=== PATIENT | male | born 1970 | race Two or more races ===

== ENCOUNTER 2018-05-11 10:47 | Inpatient (IN) | payer MEDICAID ==
[~2018-05-11] VITALS: Ht 167.6 cm; Wt 80.7 kg
--- NOTE | 2018-05-11 11:05 | NUR ---
WORSENING PITTING EDEMA TO BILATERAL LOWER EXTREMITIES. SKIN IS INTACT, TAUT/SHINY IN BLE. 1+ PITTING EDEMA, BLANCHING. STATES PAIN ONLY WHEN WALKING. PT IS AOX4, AMBULATORY WITH ASSISTANCE, VSS, RR EVEN AND UNLABORED. NO ACUTE DISTURESS NOTED. DENIES SOB, DIZZINESS, WEAKNESS, N/V. READY FOR EVAL.
[2018-05-11 11:26] LABS: BASOPHILS # (AUTO) 0.1 /CMM (0.0-0.2); BASOPHILS % (AUTO) 1.4 % (0.0-2.0); EOSINOPHILS % (AUTO) 3.2 % (0.0-6.0); HEMATOCRIT 42 % (39-51); LYMPHOCYTES # (AUTO) 1.6 /CMM (0.8-4.8); LYMPHOCYTES % (AUTO) 21.9 % (20.0-44.0); MEAN CORPUSCULAR HGB CONC 34 g/dl (31.0-36.0); MEAN CORPUSCULAR VOLUME 88 fL (80-96); MONOCYTES # (AUTO) 0.6 /CMM (0.1-1.30); MONOCYTES % (AUTO) 8.1 % (2.0-12.0); NEUTROPHILS # (AUTO) 4.8 /CMM (1.8-8.9); NEUTROPHILS % (AUTO) 65.4 % (43.0-81.0); PLATELET COUNT (AUTO) 268 /CMM (150-450); RED BLOOD CELL COUNT(AUTO) 4.75 MIL/uL (4.5-6.0); WHITE BLOOD COUNT (AUTO) 7.3 K/uL (4.3-11.0)
--- NOTE | 2018-05-11 11:32 | NUR ---
US TECH AT BEDSIDE
[2018-05-11 11:37] LABS: CALCIUM, SERUM 8.7 mg/dL (8.5-10.1); CREATININE 1.1 mg/dL (0.6-1.3); POTASSIUM 4.2 mmol/L (3.5-5.1)
[2018-05-11 11:49] LABS: ALBUMIN 3.2 g/dL (3.4-5.0); BILIRUBIN,TOTAL 0.5 mg/dL (0.2-1.0)
--- NOTE | 2018-05-11 12:00 | NUR ---
PER TECH, US NEGATIVE. WILL NOTIFY PA
[2018-05-11] MEDS ORDERED: FUROSEMIDE 40 MG/4 ML VIAL ONE (12:16)
[2018-05-11] MEDS ORDERED: VANCOMYCIN 1 GM VIAL ONE (12:16)
[2018-05-11] MEDS ORDERED: VANCOMYCIN 1 GM in IV D5W 250 ML IV ONE (12:30)
[2018-05-11] MEDS ORDERED: FUROSEMIDE 40 MG/4 ML VIAL IV ONE (12:30)
--- NOTE | 2018-05-11 13:20 | NUR ---
CALLED [employer] PRODUCT MANAGEMENT MANAGER WAS PAGED.
--- NOTE | 2018-05-11 13:30 | NUR ---
Patient is resting comfortably in bed. Easily aroused. VSS. NO COMPLAINTS AT THIS TIME
--- NOTE | 2018-05-11 13:44 | NUR ---
ABX COMPLETED. PT SHAHID WELL
--- NOTE | 2018-05-11 14:36 | NUR ---
REPORT GIVEN TO ENEIDA SETHI FOR 328-1 MS
--- NOTE | 2018-05-11 14:50 | NUR ---
PT TRANSFERRED TO 3RD FLOOR VIA WC WITH YEIMI, EMT
--- NOTE | 2018-05-11 14:55 | NUR ---
SHELLACKER PATIENT A/OX3, LIVES ON THE STREET, BREATHING EVEN AND UNLABORED, NO SOB NOTED, SKIN ASSESSMENT COMPLETED, PATIENT NOTED WITH BLE REDNESS AND SWELLING, WITH SCABS ON ZOHAIB. FEET. NEEDS ATTENDED AND MET, CALL LIGHT WITHIN REACH, WILL CONTINUE TO MONITOR.
[2018-05-11 15:30] VITALS: BP 114/82
[2018-05-11] MEDS ORDERED: IV NS 0.9% 1,000 ML IV PRN (17:05)
[2018-05-11] MEDS ORDERED: Z GUARD REMEDY 2 OZ OINT TP PRN (17:30)
[2018-05-11] MEDS ORDERED: VANCOMYCIN 1 GM in IV NS 0.9% 250 ML IV SCH (17:30)
[2018-05-11] MEDS ORDERED: HYDROCODONE/APAP 5/325MG 1 EACH TABLET PO PRN (17:30)
[2018-05-11] MEDS ORDERED: MAGNESIUM HYDROXIDE 30 ML UDC PO PRN (17:30)
[2018-05-11] MEDS ORDERED: ONDANSETRON HCL/PF 4 MG/2 ML VIAL IVP PRN (17:30)
[2018-05-11] MEDS ORDERED: ZOLPIDEM TARTRATE 5 MG TABLET PO PRN (17:30)
[2018-05-11] MEDS ORDERED: ACETAMINOPHEN 325 MG TABLET PO PRN (17:30)
[2018-05-11] MEDS ORDERED: MAG HYDROX/AL HYDROX/SIMETH 30 ML UDC PO PRN (17:30)
[2018-05-11] MEDS ORDERED: FEE PK DOSING 1 MIN EA MC ONE (17:37)
--- NOTE | 2018-05-11 18:54 | NUR ---
RN NOTES PATIENT IN BED, ASLEEP, BUT RESPONSIVE TO VERBAL STIMULI, NAD, NO SOB NOTED, DENIES PAIN, NEEDS ATTENDED AND MET, CALL LIGHT WITHIN REACH, WILL ENDORSE TO GROUND CREW CHIEF FOR JULIA.
--- NOTE | 2018-05-11 19:45 | NUR ---
RN NOTES RECEIVED PATIENT IN BED, ASLEEP, BUT RESPONSIVE TO VERBAL STIMULI, NO SIGNS OG ACUTE DISTRESS NOTED, NO SOB NOTED, BREATHING EVEN AND NON LABORED,. ALL SAFETY MEASURES MAINTAINED, BED IN LOW LOCK POSITION, CALL LIGHT WITHIN EASY REACH. WILL CONTINUE TO MONITOR.
[2018-05-11 20:12] VITALS: BP 107/69
[2018-05-11] MEDS: ENOXAPARIN SODIUM 40 MG/0.4 ML DISP.SYRIN SQ SCH (21:16)
[2018-05-11] MEDS: VANCOMYCIN 0.75 GM in IV D5W 250 ML IV SCH (21:17)
[2018-05-12] MEDS: VANCOMYCIN 0.75 GM in IV D5W 250 ML IV SCH ×3 (05:08→21:11)
[2018-05-12 06:15] LABS: BASOPHILS # (AUTO) 0.1 /CMM (0.0-0.2); BASOPHILS % (AUTO) 0.8 % (0.0-2.0); EOSINOPHILS % (AUTO) 2.5 % (0.0-6.0); HEMATOCRIT 42 % (39-51); LYMPHOCYTES # (AUTO) 0.8 /CMM (0.8-4.8); LYMPHOCYTES % (AUTO) 9.9 % (20.0-44.0); MEAN CORPUSCULAR HGB CONC 34 g/dl (31.0-36.0); MEAN CORPUSCULAR VOLUME 87 fL (80-96); MONOCYTES # (AUTO) 0.5 /CMM (0.1-1.30); MONOCYTES % (AUTO) 5.9 % (2.0-12.0); NEUTROPHILS # (AUTO) 6.9 /CMM (1.8-8.9); NEUTROPHILS % (AUTO) 80.9 % (43.0-81.0); PLATELET COUNT (AUTO) 243 /CMM (150-450); RED BLOOD CELL COUNT(AUTO) 4.77 MIL/uL (4.5-6.0); WHITE BLOOD COUNT (AUTO) 8.6 K/uL (4.3-11.0)
[2018-05-12 06:32] LABS: CALCIUM, SERUM 8.4 mg/dL (8.5-10.1); CREATININE 1.1 mg/dL (0.6-1.3); MAGNESIUM 1.9 mg/dL (1.8-2.4); PHOSPHORUS 3.7 mg/dL (2.5-4.9); POTASSIUM 4.1 mmol/L (3.5-5.1)
--- NOTE | 2018-05-12 06:37 | NUR ---
RN NOTES PATIENT IN BED, ASLEEP, BUT RESPONSIVE TO VERBAL STIMULI, NO SIGNS OF ACUTE DISTRESS NOTED, NO SOB NOTED, BREATHING EVEN AND NON LABORED,.IV ON THE RIGHT FA INTACT AND PATENT WITH NS AT 75ML/HR. ALL SAFETY MEASURES MAINTAINED, BED IN LOW LOCK POSITION, CALL LIGHT WITHIN EASY REACH. WILL ENDORSE TO AM NURSE FOR JULIA.
[2018-05-12 08:00] VITALS: BP 129/76
--- NOTE | 2018-05-12 08:00 | NUR ---
MS RN AM NOTES PATIENT IN BED, BUT RESPONSIVE TO VERBAL STIMULI, NO SIGNS OF ACUTE DISTRESS NOTED, NO SOB NOTED, BREATHING EVEN AND NON LABORED,.IV ON THE RIGHT FA INTACT AND PATENT WITH NS AT 75ML/HR INFUSING WELL. SAFETY MEASURES MAINTAINED, BED IN LOW LOCK POSITION, CALL LIGHT WITHIN EASY REACH.
[2018-05-12 16:00] VITALS: BP 131/65
--- NOTE | 2018-05-12 18:53 | NUR ---
PT RESTING IN BED DENYING ANY PAIN OR DISTRESS.INTERACTING FINE WITH ROOMATE.WITH ONGOING IVF OF NS AT 75 ML/HR INFUSING WELL.CALL LIGHT PLACED WITHIN REAX
--- NOTE | 2018-05-12 19:33 | NUR ---
MS RN NOTE RECEIVED PT IN STABLE CONDITION A&O X4. CURRENTLY WATCHING TV. NO SIGNS OF SOB OR DISTRESS. SAFETY MEASURES IN PLACE: BED LOW AND LOCKED POSITION, UPPER BED RAILS UP X2, AND CALL LIGHT WITHIN REACH. WILL CONT. TO MONITOR.
[2018-05-12 20:00] VITALS: BP 114/83
[2018-05-12] MEDS: ENOXAPARIN SODIUM 40 MG/0.4 ML DISP.SYRIN SQ SCH (20:36)
[2018-05-13] MEDS: VANCOMYCIN 0.75 GM in IV D5W 250 ML IV SCH ×2 (05:01→13:49)
--- NOTE | 2018-05-13 06:20 | NUR ---
MS RN NOTE PT IN STABLE CONDITION A&O X4. SLEEPING INTERMITTENTLY, AND EASILY AROUSABLE. NO SIGNS OF SOB OR DISTRESS. R FA IV PATENT AND INTACT INFUSING AM DOSE OF VANCOMYCIN. TOLERATING WELL. SAFETY MEASURES IN PLACE: BED LOW AND LOCKED POSITION, UPPER BED RAILS UP X2, AND CALL LIGHT WITHIN REACH. WILL CONT. TO MONITOR AND ENDORSE TO NEXT SHIFT.
[2018-05-13 06:25] LABS: CALCIUM, SERUM 8.8 mg/dL (8.5-10.1); CREATININE 1.2 mg/dL (0.6-1.3); POTASSIUM 4.3 mmol/L (3.5-5.1)
[2018-05-13 08:00] VITALS: BP 117/88
--- NOTE | 2018-05-13 08:00 | NUR ---
RN NOTES RECEIVED PATIENT IN THE BED SLEEPING. PATIENT HAS NO ACUTE RESPIRATORY DISTRESS, V/S TAKEN STABLE, PATIENT AMBULATORY SELF CARE, USING URINAL. EDEMA BILATERAL LOWER EXTREMITIES. ENCOURAGED TO ELEVATE USING PILLOWS. INFUSING NS AT 75ML/HR RIGHT FA INTACT. PATIENT REFUSED PAIN AT THIS TIME. CALL LIGHT WITHIN TO REACH. CONTINUED MONITORING.
--- NOTE | 2018-05-13 14:06 | NUR ---
rn notes patient in the bed, refused pain at this time. infusing vancomycin 250ml/hr intact, patient turn and reposition self, continued monitoring.
--- NOTE | 2018-05-13 15:26 | NUR ---
rn notes patient going to discharge to [facility] per dr. Meier.
[2018-05-13 16:00] VITALS: BP 104/72
--- NOTE | 2018-05-13 17:50 | NUR ---
DISCHARGE NOTES PATIENT DISCHARGE AT THIS TIME STABLE V/S STABLE, NO COMPLAINING OF PAIN. MED RECONCILIATION AND DISCHARGE ORDER REVIEWED AND EXPLAINED TO PATIENT. PATIENT VERBALIZED UNDERSTANDING. BELONGING TO THE PATIENT. PATIENT REFUSED TO [facility]. PER PATIENT HE HAS A TENT HOLDING BY HES FRIEND IN [place]. PATIENT REFUSED SIGN PAPERWORK, AND REFUSED PICTURE TO BE TAKEN. PATIENT REFUSED GIVE ADDRESS TO GET BUS MONEY. PATIENT STATE "I WILL BE FINE". PATIENT WILL FOLLOW PRIMARY MD. ESCORTED PATIENT TO THE LOBBY FOR SAFETY.
== END 2018-05-13 17:45 | disposition home or self-care (01) | DRG 383 ==
LOC: ER 10:50 → MED 14:18
PROVIDERS: ADMIT Internal Medicine; ATTEND Internal Medicine
DX: L03.116 Cellulitis of left lower limb (principal); E44.0 Moderate protein-calorie malnutrition; L03.115 Cellulitis of right lower limb; E86.0 Dehydration; Z59.0 Homelessness; F17.210 Nicotine dependence, cigarettes, uncomplicated; F19.11 Other psychoactive substance abuse, in remission; I51.7 Cardiomegaly
CPT/HCPCS: 36415; 71045-TC; 80048-TC; 80053-TC; 80061-TC; 80202-TC; 83735-TC; 83880; 84100-TC; 84484-TC; 85025-TC; 85730-TC; 87040-TC; 87081-TC; 93970-TC; G0378; J1650; J1940; J3370; J7030; J7050; J7060

== ENCOUNTER 2018-09-07 10:05 | Emergency (ER) | payer MEDICAID ==
[~2018-09-07] VITALS: Ht 170.2 cm; Wt 70.8 kg
[2018-09-07 10:12] VITALS: BP 153/91
== END 2018-09-07 10:40 | disposition home or self-care (01) ==
LOC: ER 10:05
DX: R60.0 Localized edema (principal); F17.200 Nicotine dependence, unspecified, uncomplicated

== ENCOUNTER 2018-09-25 09:55 | Inpatient (IN) ==
[~2018-09-25] VITALS: Ht 170.2 cm; Wt 78.9 kg
[2018-09-25] MEDS ORDERED: MAG HYDROX/AL HYDROX/SIMETH 30 ML UDC PO ONE (10:30)
--- NOTE | 2018-09-25 10:30 | NUR ---
patient came to the ER c/o abd pain, sob, and BLE cellulitis x 3 days, on room air, breathing evenly and unlabored, kept comfortable, will continue to monitor accordingly.
[2018-09-25] MEDS ORDERED: MAG HYDROX/AL HYDROX/SIMETH 30 ML UDC ONE ×2 (10:36→10:37)
[2018-09-25 10:41] LABS: BASOPHILS # (AUTO) 0.1 /CMM (0.0-0.2); BASOPHILS % (AUTO) 0.9 % (0.0-2.0); HEMATOCRIT 42 % (39-51); LYMPHOCYTES # (AUTO) 1.9 /CMM (0.8-4.8); LYMPHOCYTES % (AUTO) 19.8 % (20.0-44.0); MEAN CORPUSCULAR HGB CONC 33 g/dl (31.0-36.0); MEAN CORPUSCULAR VOLUME 89 fL (80-96); MONOCYTES # (AUTO) 0.8 /CMM (0.1-1.30); NEUTROPHILS # (AUTO) 6.7 /CMM (1.8-8.9); NEUTROPHILS % (AUTO) 70.3 % (43.0-81.0); PLATELET COUNT (AUTO) 254 /CMM (150-450); WHITE BLOOD COUNT (AUTO) 9.5 K/uL (4.3-11.0)
[2018-09-25 10:49] LABS: CALCIUM, SERUM 9.1 mg/dL (8.5-10.1); CREATININE 1.2 mg/dL (0.6-1.3); POTASSIUM 5.1 mmol/L (3.5-5.1)
[2018-09-25] MEDS ORDERED: FURO-145 PO (10:52)
[2018-09-25 11:02] LABS: ALBUMIN 3.3 g/dL (3.4-5.0); BILIRUBIN,DIRECT 0.1 mg/dL (0.0-0.2); BILIRUBIN,TOTAL 0.6 mg/dL (0.2-1.0); TOTAL PROTEIN, SERUM 6.6 g/dL (6.4-8.2)
--- NOTE | 2018-09-25 12:13 | NUR ---
320-2 RAIN MONIQUE DX CHF SAVANANH MURILLO
[2018-09-25] MEDS ORDERED: FUROSEMIDE 20 MG/2 ML VIAL IV SCH (13:00)
--- NOTE | 2018-09-25 13:00 | NUR ---
TIE LAYER NOTES PATIENT RECEIVED AWAKE ALERT AND VERBALLY RESPONSIVE ABLE TO MAKE NEEDS KNOWN, RESPIRATION EVEN AND UNLABORED, PT WITH COMPLAINT OF SHORTNESS OF BREATH UPON EXERTION. DENIES ANY PAIN OR DISCOMFORT AT THIS TIME. IV ACCESS TO LEFT HAND PATENT AND INTACT, NO REDNESS OR INFILTRATION NOTED. PATIENT ADMITTED FOR DYSPNEA ON EXERTION, CONTINUED LABS, DNP LIDIA NOTIFIED OF PT ARRIVAL PT DENIES HAVING ANY HOME MEDS, KEPT CLEAN DRY AND COMFORTABLE, PICTURES OF SKIN TAKEN AND PLACED IN CHART, WILL CONTINUE TO MONITOR
[2018-09-25] MEDS ORDERED: FUROSEMIDE 20 MG/2 ML VIAL ONE (13:02)
--- NOTE | 2018-09-25 13:43 | NUR ---
maury wheeled via gurney accompanied by RN and emt in no apparent distress noted. Becki RN at bedside to assume care.
[2018-09-25] MEDS ORDERED: ZOLPIDEM TARTRATE 5 MG TABLET PO PRN (15:00)
[2018-09-25] MEDS ORDERED: ONDANSETRON HCL/PF 4 MG/2 ML VIAL IVP PRN (15:00)
[2018-09-25] MEDS ORDERED: ACETAMINOPHEN 325 MG TABLET PO PRN (15:00)
[2018-09-25] MEDS ORDERED: HYDROCODONE/APAP 5/325MG 1 EACH TABLET PO PRN (15:00)
[2018-09-25] MEDS ORDERED: Z GUARD REMEDY 2 OZ OINT TP PRN (15:00)
[2018-09-25] MEDS ORDERED: MAGNESIUM HYDROXIDE 30 ML UDC PO PRN (15:00)
[2018-09-25] MEDS ORDERED: MAG HYDROX/AL HYDROX/SIMETH 30 ML UDC PO PRN (15:00)
[2018-09-25] MEDS: ENOXAPARIN SODIUM 40 MG/0.4 ML DISP.SYRIN SQ SCH (15:47)
[2018-09-25 16:00] VITALS: BP 143/93
--- NOTE | 2018-09-25 18:35 | NUR ---
RN NOTES PATIENT AWAKE ALERT AND VERBALLY RESPONSIVE ABLE TO MAKE NEEDS KNOWN, RESPIRATION EVEN AND UNLABORED, PT WITH COMPLAINT OF SHORTNESS OF BREATH UPON EXERTION. DENIES ANY PAIN OR DISCOMFORT AT THIS TIME. IV ACCESS TO LEFT HAND PATENT AND INTACT, NO REDNESS OR INFILTRATION NOTED. PATIENT ADMITTED FOR DYSPNEA ON EXERTION, CONTINUED LABS, KEPT CLEAN DRY AND COMFORTABLE, PICTURES OF SKIN TAKEN AND PLACED IN CHART, WILL CONTINUE TO MONITOR. CALLED LAB TO PROCESS SAFETY MANAGEMENT ENGINEER URINE SPECIMEN FOR URINE LAB TESTS
--- NOTE | 2018-09-25 19:45 | NUR ---
QUALITY TECHNICIAN NOTES RECEIVED PATIENT AWAKE RESTING COMFORTABLY IN BED, BREATHING EVEN AND UNLABORED, TELE MONITOR READS SINUS TACH 108, IV ACCESS INTACT AND PATENT, DENIES ANY PAIN OR DISCOMFORT AT THIS TIME, WILL CONTINUE TO MONITOR ACCORDINGLY.
[2018-09-25 20:21] VITALS: BP 114/86
[2018-09-25 21:13] LABS: APPEARANCE,URINE CLEAR (CLEAR); BILIRUBIN,URINE NEGATIVE (NEGATIVE); BLOOD, URINE NEGATIVE Ery/uL (NEGATIVE); COLOR,URINE YELLOW (YELLOW); KETONES,URINE NEGATIVE (NEGATIVE); LEUKOCYTE ESTERASE ,URINE NEGATIVE (NEGATIVE); NITRITE, URINE NEGATIVE (NEGATIVE); PH,URINE 6.5 (5.0-8.0); PROTEIN,URINE NEGATIVE (NEGATIVE); UGLUCOSE NEGATIVE (NEGATIVE); UROBILINOGEN,URINE 0.2 EU/dL (0.2)
[2018-09-26 00:51] VITALS: BP 128/94
[2018-09-26 04:00] VITALS: BP 110/84
[2018-09-26 04:30] VITALS: BP 110/85
--- NOTE | 2018-09-26 07:02 | NUR ---
RN NOTES ALL NEEDS ATTENDED AND MET, ABLE TO REST AND SLEEP AT INTERVALS, NO COMPLAINTS OF ANY PAIN OR DISCOMFORT THROUGHOUT THE NIGHT, IV ACCESS INTACT AND PATENT, WILL ENDORSE TO AM NURSE FOR CONTINUITY OF CARE.
--- NOTE | 2018-09-26 07:05 | NUR ---
CLINICAL REGISTERED NURSE NOTES PATIENT IN BED ALERT ORIENTED X 4. NO ACUTE DISTRESS NOTED, BREATHING UNLABORED, NO SOB NOTED. IV ACCESS PATENT AND INTACT, NO REDNESS NO SWELLING NOTED. SAFETY MEASURES IN PLACE. CALL LIGHT WITHIN REACH. WILL CONTINUE TO MONITOR ACCORDINGLY.
[2018-09-26 07:17] LABS: BASOPHILS # (AUTO) 0.1 /CMM (0.0-0.2); EOSINOPHILS % (AUTO) 2.4 % (0.0-6.0); HEMATOCRIT 42 % (39-51); HEMOGLOBIN 14.1 g/dL (13.5-17.5); LYMPHOCYTES # (AUTO) 2.1 /CMM (0.8-4.8); LYMPHOCYTES % (AUTO) 24.2 % (20.0-44.0); MEAN CORPUSCULAR HGB CONC 34 g/dl (31.0-36.0); MEAN CORPUSCULAR VOLUME 89 fL (80-96); MONOCYTES # (AUTO) 0.7 /CMM (0.1-1.30); MONOCYTES % (AUTO) 8.2 % (2.0-12.0); NEUTROPHILS # (AUTO) 5.5 /CMM (1.8-8.9); NEUTROPHILS % (AUTO) 64.2 % (43.0-81.0); PLATELET COUNT (AUTO) 247 /CMM (150-450); WHITE BLOOD COUNT (AUTO) 8.5 K/uL (4.3-11.0)
[2018-09-26 07:33] LABS: THYROID STIMULATING HORMONE 2.599 uIU/mL (0.358-3.74)
[2018-09-26] MEDS: PANTOPRAZOLE 40 MG TABLET.DR PO SCH (07:41)
[2018-09-26 07:48] LABS: CALCIUM, SERUM 8.8 mg/dL (8.5-10.1); CREATININE 1.2 mg/dL (0.6-1.3); MAGNESIUM 1.9 mg/dL (1.8-2.4); PHOSPHORUS 3.7 mg/dL (2.5-4.9); POTASSIUM 4.4 mmol/L (3.5-5.1)
[2018-09-26 08:00] VITALS: BP 127/94
[2018-09-26] MEDS: LOSARTAN POTASSIUM 50 MG TABLET PO SCH (09:14)
[2018-09-26] MEDS ORDERED: IOHEXOL-350 100 ML VIAL IV ONE (10:13)
[2018-09-26] MEDS ORDERED: IV NS 0.9% 250 ML IV ONE (10:14)
[2018-09-26] MEDS ORDERED: CT SWABBABLE VALVE TRANS SET 1 EA INFUS.SET MC ONE (10:14)
--- NOTE | 2018-09-26 11:16 | NUR ---
Social service consult requested by DAVONTE Blanca for homelessness. Pt. is a 48 year old male who was admitted to [facility] for CHF. SW met with pt. bedside. Pt. is alert and oriented x 4. Pt. appeared disheveled and unkempt. Pt. was eating In&Out fries when SW met with him. Pt. was cooperative and friendly during the assessment. Pt. is homeless and has been for the past 10 years. Pt. states he resides in a tent that is located behind an industrial building where the enrollment services dean has allowed him to set up his tent. Pt. states he has an interview on October 08 for his Section 8 housing. Pt denies alcohol and drug use. Pt. 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 Pt. states he has no criminal history. Pt. receives [employer] monthly. Pt. stated he goes to shower at [facility] facility Pt. declined care home placement stating he will be going back to his tent and to his appointment on October 08 for Section 8 Housing. SW to offer pt. homeless resources upon discharge. Pt. will need a TAP card to get to his tent. Homeless Patient [place]avier form to be signed upon discharge.
[2018-09-26 11:47] LABS: ABG BASE EXCESS 0.9 mmol/L; ABG OXYGEN SATURATION 96.4 % (92.0-98.5); ABG PCO2 33.1 mmHg (35.0-45.0); ABG PH 7.475 (7.350-7.450); ABG PO2 89.8 mmHg (75.0-100.0); AaDO2 20.3 mmHg; COHb 0.6 % (0.5-1.5); MetHb 0.5 % (0.0-1.5); O2Hb 95.3 % (94.0-97.0); SITE, ABG Right Radial; VENT MODE, BG ROOM AIR
[2018-09-26 16:00] VITALS: BP 128/95
--- NOTE | 2018-09-26 18:56 | NUR ---
MS RN NOTES PATIENT IN BED ALERT ORIENTED X 4. NO ACUTE DISTRESS NOTED, BREATHING UNLABORED, NO SOB NOTED. IV ACCESS PATENT AND INTACT, NO REDNESS NO SWELLING NOTED. DUE MEDICATIONS GIVEN, NO ASE NOTED. NEEDS ATTENDED AND ANTICIPATED. SAFETY MEASURES IN PLACE. CALL LIGHT WITHIN REACH. WILL ENDORSE TO NIGHT NURSE FOR CONTINUITY OF CARE.
--- NOTE | 2018-09-26 19:30 | NUR ---
RN MS OPENING NOTES RECEIVED PATIENT IN BED AWAKE, ALERT AND ORIENTED X3, VERBALLY RESPONSIVE, ABLE TO MAKE NEEDS KNOWN. BREATHING EVEN AND UNLABORED. NO SOB NOTED. ON ROOM AIR. CURRENTLY WITH NO COMPLAINTS OF PAIN OR DISCOMFORT. NO FACIAL GRIMACING. IV ON LEFT HAND G#18 AND RIGHT AC#20 INTACT AND PATENT. SKIN DRY AND WARM TO TOUCH. AFEBRILE. ALL OTHER NEEDS MET. SAFETY MEASURES IN PLACE. CALL LIGHT WITHIN REACH. WILL CONTINUE TO MONITOR.
[2018-09-26 20:00] VITALS: BP 105/77
[2018-09-26] MEDS: ENOXAPARIN SODIUM 40 MG/0.4 ML DISP.SYRIN SQ SCH (20:34)
--- NOTE | 2018-09-27 06:30 | NUR ---
RN MS CLOSING NOTES PATIENT RESTING IN BED. NO ACUTE CHANGES. BREATHING EVEN AND UNLABORED. NO SOB NOTED. ON ROOM AIR. CURRENTLY WITH NO COMPLAINTS OF PAIN OR DISCOMFORT. NO FACIAL GRIMACING. IV ON LEFT HAND G#18 AND RIGHT AC#20 INTACT AND PATENT. KEPT CLEAN AND COMFORTABLE. ALL OTHER NEEDS MET. SAFETY MEASURES IN PLACE. CALL LIGHT WITHIN REACH. WILL ENDORSE TO ONCOMING NURSE FOR JULIA.
[2018-09-27 07:08] LABS: BASOPHILS # (AUTO) 0.1 /CMM (0.0-0.2); BASOPHILS % (AUTO) 1.1 % (0.0-2.0); EOSINOPHILS % (AUTO) 1.8 % (0.0-6.0); HEMATOCRIT 42 % (39-51); LYMPHOCYTES % (AUTO) 19.7 % (20.0-44.0); MEAN CORPUSCULAR HGB CONC 34 g/dl (31.0-36.0); MEAN CORPUSCULAR VOLUME 89 fL (80-96); MONOCYTES # (AUTO) 0.8 /CMM (0.1-1.30); MONOCYTES % (AUTO) 7.9 % (2.0-12.0); NEUTROPHILS # (AUTO) 7.2 /CMM (1.8-8.9); NEUTROPHILS % (AUTO) 69.5 % (43.0-81.0); PLATELET COUNT (AUTO) 222 /CMM (150-450); RED BLOOD CELL COUNT(AUTO) 4.66 MIL/uL (4.5-6.0); WHITE BLOOD COUNT (AUTO) 10.4 K/uL (4.3-11.0)
--- NOTE | 2018-09-27 07:10 | NUR ---
MS RN NOTES PATIENT IN BED ALERT ORIENTED X 4. NO ACUTE DISTRESS NOTED, BREATHING UNLABORED, NO SOB NOTED. IV ACCESS PATENT AND INTACT, NO REDNESS NO SWELLING NOTED. SAFETY MEASURES IN PLACE. CALL LIGHT WITHIN REACH. WILL CONTINUE TO MONITOR ACCORDINGLY.
[2018-09-27 07:32] LABS: CALCIUM, SERUM 8.7 mg/dL (8.5-10.1); CREATININE 1.1 mg/dL (0.6-1.3); PHOSPHORUS 3.6 mg/dL (2.5-4.9); POTASSIUM 5.3 mmol/L (3.5-5.1)
[2018-09-27] MEDS: PANTOPRAZOLE 40 MG TABLET.DR PO SCH (08:10)
[2018-09-27] MEDS: LOSARTAN POTASSIUM 50 MG TABLET PO SCH (08:31)
[2018-09-27 08:40] VITALS: BP 135/96
[2018-09-27] MEDS ORDERED: FUROSEMIDE 20 MG TABLET PO SCH (09:00)
[2018-09-27] MEDS: SILDENAFIL CITRATE 20 MG TABLET PO SCH ×2 (12:50→17:38)
[2018-09-27 16:04] VITALS: BP 102/55
--- NOTE | 2018-09-27 18:17 | NUR ---
Appointment for pcp follow up made: On October 10, 2018 at 11:45am � Monday [facility] [address] [place] [address] TEL: [phone] Please arrive 15 minutes early. Bring your medication list and ID. He was also advised to Please follow up at [facility] , [facility] Agatha Claire � Mental health counselor II / Datastage Consultant [id number] [place] [address] TEL: [phone] [phone] Addendum: 09/27/18 at 1818 by MARITZA THOMAS RN Amended: Links added.
--- NOTE | 2018-09-27 18:56 | NUR ---
MS RN NOTES PATIENT IN BED ALERT ORIENTED X 4. NO ACUTE DISTRESS NOTED, BREATHING UNLABORED, NO SOB NOTED. IV ACCESS PATENT AND INTACT, NO REDNESS NO SWELLING NOTED. DUE MEDICATION GIVEN GIVEN, NO ASE NOTED. NEEDS ATTENDED AND ANTICIPATED. SAFETY MEASURES IN PLACE. CALL LIGHT WITHIN REACH. WILL ENDORSE TO NIGHT NURSE FOR CONTINUITY OF CARE.
--- NOTE | 2018-09-27 19:15 | NUR ---
MS RN OPENING NOTES: RECEIVED PATIENT RESTING IN BED, AWAKE ALERT, AND ORIENTED X4. NO COMPLAIN OF PAIN. CALL LIGHT WITHIN REACH. ABLE TO MOVE HIS LEGS, DORSI-FLEXION OF BOTH FEET ARE GOOD WITH NO COMPLAIN OF PAIN. ENCOURAGED FREQUENT SELF REPOSITION WHILE IN BED.
[2018-09-27 20:00] VITALS: BP 107/69
[2018-09-27] MEDS: ENOXAPARIN SODIUM 40 MG/0.4 ML DISP.SYRIN SQ SCH (20:56)
--- NOTE | 2018-09-28 06:00 | NUR ---
MS RN CLOSING NOTES: PATIENT IS RESTING COMFORTABLY IN BED, NO COMPLAIN OF PAIN. AWAKE ALERT AND ORIENTED X4. NO ACUTE EVENTS OVERNIGHT. AFEBRILE. CALL LIGHT WITHIN REACH.
[2018-09-28 07:35] LABS: CALCIUM, SERUM 8.1 mg/dL (8.5-10.1); CREATININE 1.1 mg/dL (0.6-1.3); POTASSIUM 4.8 mmol/L (3.5-5.1)
[2018-09-28 08:00] VITALS: BP 131/86
--- NOTE | 2018-09-28 08:00 | NUR ---
m/s speeder operator: initial assessment received pt in bed awake, a/ox4. no c/o pain or any discomfort. no acute distress noted. instructed to call for assistance. will continue to monitor.
[2018-09-28 08:08] VITALS: BP_SYST 131; BP_SYST 146; BP_DIAS 71; BP_DIAS 86
[2018-09-28 08:30] VITALS: BP 131/86
[2018-09-28] MEDS: PANTOPRAZOLE 40 MG TABLET.DR PO SCH (08:30)
[2018-09-28] MEDS: SILDENAFIL CITRATE 20 MG TABLET PO SCH ×2 (08:30→13:45)
[2018-09-28] MEDS ORDERED: LOSARTAN POTASSIUM 50 MG TABLET PO SCH (09:00)
[2018-09-28] MEDS ORDERED: FUROSEMIDE 20 MG TABLET PO SCH (09:00)
--- NOTE | 2018-09-28 10:00 | NUR ---
m/s granite polisher machine: notes resting comfortable in bed with no distress noted. will continue to monitor.
--- NOTE | 2018-09-28 13:10 | NUR ---
m/s food processing chemist: notes upon making rounds, pt anxiously wants to go home now. avril (acnp) notified and made aware. louie (s.w.) notified and made aware. will continue to monitor. instructed to call for assistance. will continue to monitor.
[2018-09-28] MEDS ORDERED: SILD20TA PO (13:42)
[2018-09-28] MEDS ORDERED: FURO20TA4 PO (13:42)
[2018-09-28] MEDS ORDERED: LOSA50TA3 PO (13:42)
--- NOTE | 2018-09-28 13:49 | NUR ---
VICKEY was informed by spring encaser Sandy Lewis that pt. will be discharged today. SW met with pt. bedside to discuss discharge plan. Pt. is alert and oriented x 4. Pt. speech is pressured and continues to state that, " they are starving me." Pt. has been provided with meals throughout his stay at the hospital. Pt. appears agitated and upset due to having to be discharged today. SW offered pt. homeless nursing home placement and resources, however pt. declined all resources. Pt. declined to sign Homeless patient waiver form and accept TAP card. No other social service needs are required at this time. Pt. is not cooperating with SW. Pt's RN Roman has been updated with the aforementioned information.
--- NOTE | 2018-09-28 14:05 | NUR ---
m/s family protection specialist: notes pt still wants to go home now, still awaiting for order. pt aware. 2 h/l removed per pt request with tip intact with no swelling, redness, and no bleeding noted. provided sandwich and juices. pt refused resources when social organization professor at bedside earlier. will continue to monitor.
--- NOTE | 2018-09-28 14:23 | NUR ---
m/s honing machine try out setter: notes received order to d'c pt home. order acknowledged.
--- NOTE | 2018-09-28 14:25 | NUR ---
m/s gis instructor: notes discharge instructions with prescriptions given to pt and verbalized understanding. pt refused skin photos prior to discharge. pt change his mind and wants a tap card.
--- NOTE | 2018-09-28 14:41 | NUR ---
m/s tumbler drier operator: discharged discharged home via ambulatory with tap card in stable condition with all d'c papers, prescriptions, and belongings.
== END 2018-09-28 14:43 | disposition home or self-care (01) | DRG 194 ==
LOC: ER 09:55 → TELE 12:28 → MED 09-26 09:07
PROVIDERS: ADMIT Hospitalist; ATTEND Hospitalist
DX: I11.0 Hypertensive heart disease with heart failure (principal); E86.0 Dehydration; I27.20 Pulmonary hypertension, unspecified; I42.9 Cardiomyopathy, unspecified; E44.1 Mild protein-calorie malnutrition; I50.23 Acute on chronic systolic (congestive) heart failure; F19.10 Other psychoactive substance abuse, uncomplicated; Z59.0 Homelessness; E78.5 Hyperlipidemia, unspecified; F17.210 Nicotine dependence, cigarettes, uncomplicated; I45.10 Unspecified right bundle-branch block; Z68.27 Body mass index [BMI] 27.0-27.9, adult; I08.0 Rheumatic disorders of both mitral and aortic valves; Z71.6 Tobacco abuse counseling
CPT/HCPCS: 36415; 36600; 71045-TC; 80048-TC; 80061-TC; 80076-TC; 80305; 81000-TC; 82803-TC; 83735-TC; 83880; 84100-TC; 84443-TC; 84484-TC; 85025-TC; 85730-TC; 87081-TC; 87086-TC; 93307-TC; 93970-TC; G0378; J1650; J1940; J7050; Q9967

== ENCOUNTER 2019-06-12 10:55 | Emergency (ER) | payer MEDICAID ==
[~2019-06-12] VITALS: Ht 165.1 cm; Wt 74.4 kg
[~2019-06-12 10:55] MED LIST: FURO20TA4 PO; LOSA50TA3 PO; SILD20TA PO
--- NOTE | 2019-06-12 11:30 | NUR ---
bib mental health case advocate from the street, c/o bilateral LE edema x 4 days. On rooma ir, breathing evenly and unlabored. connected to the monitor and pulse ox. kept comfortable, will continue to monitor accordingly.
[2019-06-12 11:41] LABS: BASOPHILS # (AUTO) 0.1 /CMM (0.0-0.2); BASOPHILS % (AUTO) 1.2 % (0.0-2.0); EOSINOPHILS % (AUTO) 2.8 % (0.0-6.0); HEMATOCRIT 41 % (39-51); HEMOGLOBIN 13.8 g/dL (13.5-17.5); LYMPHOCYTES # (AUTO) 1.5 /CMM (0.8-4.8); LYMPHOCYTES % (AUTO) 16.9 % (20.0-44.0); MEAN CORPUSCULAR HGB CONC 33 g/dl (31.0-36.0); MEAN CORPUSCULAR VOLUME 92 fL (80-96); MONOCYTES # (AUTO) 0.7 /CMM (0.1-1.30); MONOCYTES % (AUTO) 8.5 % (2.0-12.0); NEUTROPHILS # (AUTO) 6.1 /CMM (1.8-8.9); NEUTROPHILS % (AUTO) 70.6 % (43.0-81.0); PLATELET COUNT (AUTO) 267 /CMM (150-450); RED BLOOD CELL COUNT(AUTO) 4.52 MIL/uL (4.5-6.0); WHITE BLOOD COUNT (AUTO) 8.6 K/uL (4.3-11.0)
[2019-06-12 11:51] LABS: CREATININE 1.2 mg/dL (0.6-1.3); POTASSIUM 4.6 mmol/L (3.5-5.1)
[2019-06-12 12:04] LABS: BILIRUBIN,DIRECT 0.1 mg/dL (0.0-0.2); BILIRUBIN,TOTAL 0.4 mg/dL (0.2-1.0); TOTAL PROTEIN, SERUM 6.4 g/dL (6.4-8.2)
[2019-06-12 14:33] VITALS: BP 140/89
--- NOTE | 2019-06-12 14:34 | NUR ---
Patient discharged to home in stable condition. Written and verbal after care instructions given. Patient verbalizes understanding of instruction.IV removed. Catheter intact and site benign. Pressure and 4x4 applied to site. No bleeding noted.
== END 2019-06-12 14:34 | disposition home or self-care (01) ==
LOC: ER 10:55
DX: L03.116 Cellulitis of left lower limb (principal); L03.115 Cellulitis of right lower limb; S00.212A Abrasion of left eyelid and periocular area, initial encounter; R60.0 Localized edema; L55.9 Sunburn, unspecified; I50.9 Heart failure, unspecified; F17.200 Nicotine dependence, unspecified, uncomplicated; Z59.0 Homelessness; Z79.899 Other long term (current) drug therapy; X58.XXXA Exposure to other specified factors, initial encounter; Y93.89 Activity, other specified; Y92.89 Other specified places as the place of occurrence of the external cause; Y99.8 Other external cause status
CPT/HCPCS: 36415; 71045-TC; 80048-TC; 80076-TC; 83880; 84484-TC; 85025-TC

== ENCOUNTER 2020-08-21 14:41 | Inpatient (IN) | payer MEDICAID, OTHER ==
[~2020-08-21] VITALS: Ht 170.2 cm; Wt 79.0 kg
--- NOTE | 2020-08-21 15:02 | NUR ---
The patient bib his bilingual case manager c/o BLE edema and sob for more than a week. Oxygen saturation level in room air is at 98%. Denies pain. Alert and oriented x4. Attached on a monitor. Will continue to monitor the patient.
[2020-08-21] MEDS ORDERED: LISI10TA29 PO (16:20)
[2020-08-21] MEDS ORDERED: CARV3.122 PO (16:20)
[2020-08-21] MEDS ORDERED: ARIP10TA17 PO (16:20)
[2020-08-21 16:45] LABS: BASOPHILS # (AUTO) 0.1 /CMM (0.0-0.2); BASOPHILS % (AUTO) 1.1 % (0.0-2.0); EOSINOPHILS % (AUTO) 1.9 % (0.0-6.0); HEMATOCRIT 43 % (39-51); HEMOGLOBIN 14.3 g/dL (13.5-17.5); LYMPHOCYTES # (AUTO) 1.8 /CMM (0.8-4.8); LYMPHOCYTES % (AUTO) 22.8 % (20.0-44.0); MEAN CORPUSCULAR HGB CONC 34 g/dl (31.0-36.0); MEAN CORPUSCULAR VOLUME 92 fL (80-96); MONOCYTES # (AUTO) 0.5 /CMM (0.1-1.30); MONOCYTES % (AUTO) 6.7 % (2.0-12.0); NEUTROPHILS # (AUTO) 5.5 /CMM (1.8-8.9); NEUTROPHILS % (AUTO) 67.5 % (43.0-81.0); PLATELET COUNT (AUTO) 245 /CMM (150-450); RED BLOOD CELL COUNT(AUTO) 4.64 MIL/uL (4.5-6.0); WHITE BLOOD COUNT (AUTO) 8.1 K/uL (4.3-11.0)
[2020-08-21 16:57] LABS: ALANINE AMINOTRANSFERASE 28 U/L (12-78); ALBUMIN 3.3 g/dL (3.4-5.0); ALKALINE PHOSPHATASE 77 U/L (46-116); ASPARTATE AMINOTRANSFERASE 36 U/L (15-37); B-TYPE NATRIURETIC PEPTIDE 1393 PG/ML (0-125); BILIRUBIN,DIRECT 0.1 mg/dL (0.0-0.2); BILIRUBIN,TOTAL 0.6 mg/dL (0.2-1.0); CALCIUM, SERUM 8.7 mg/dL (8.5-10.1); CARBON DIOXIDE 27 mmol/L (21-32); CHLORIDE 103 mmol/L (98-107); CREATININE 1.3 mg/dL (0.6-1.3); GLUCOSE 99 mg/dL (74-106); POTASSIUM 4.5 mmol/L (3.5-5.1); SODIUM SERUM 138 mmol/L (136-145); TOTAL PROTEIN, SERUM 6.6 g/dL (6.4-8.2); UREA NITROGEN, BLOOD 21 mg/dL (7-18)
[2020-08-21] MEDS ORDERED: FUROSEMIDE 40 MG/4 ML VIAL IV ONE (18:00)
[2020-08-21] MEDS ORDERED: FUROSEMIDE 40 MG/4 ML VIAL ONE (18:10)
--- NOTE | 2020-08-21 19:26 | NUR ---
covid swab collected and sent to the lab.
--- NOTE | 2020-08-21 19:26 | NUR ---
covid swab done and sent to the lab
[2020-08-21] MEDS ORDERED: ASPIRIN 81 MG TAB.CHEW PO ONE (19:30)
[2020-08-21] MEDS ORDERED: ASPIRIN EC 81 MG TABLET.DR PO ONE (19:37)
--- NOTE | 2020-08-21 19:43 | NUR ---
Report given to ENEIDA Reno
--- NOTE | 2020-08-21 20:25 | NUR ---
REPORT GIVEN TO ELOY MONIQUE FOR JULIA.
--- NOTE | 2020-08-21 20:27 | NUR ---
PT TAKEN UP TO ASSIGNED ROOM FOR JULIA.
[2020-08-21 20:35] VITALS: BP 133/87
--- NOTE | 2020-08-21 20:35 | NUR ---
TEL STAFFING CLERK NOTE PATIENT RECEIVED VIA GURNEY. AMBULATED TO BED, STEADY GAIT. A/OX4. TOLERATING ROOM AIR. RESPIRATIONS ARE EVEN AND UNLABORED NO S/S SOB NOTED. NO C/O PAIN AT THIS TIME. EXTERNAL TELE MONITOR APPLIED, READS SINUS RHYTHM / SINUS TACHY CARDIA HR 99-104. WITH BBB AND PVCS. IN NO APPARENT DISTRESS. IV ACCESS IN RAC#18 PATENT AND SALINE LOCKED. INITIAL PHYSICAL ASSESSMENT COMPLETED AT THIS TIME. SKIN ASSESSMENT COMPLETED, PHOTOS TAKEN AND PLACED IN CHART. FOREST RESOURCES PROFESSOR OBTAINED VITAL SIGNS AND COMPLETED BELONGING LIST. BED IS LOW AND LOCKED, HOB ELEVATED IN SEMI FOWLERS, SIDE RAILS UP X2, CALL LIGHT WITHIN REACH, EDUCATED ON URINAL. CALL LIGHT WITHIN REACH, EDUCATED ON USE. WILL CONTINUE TO MONITOR THROUGHOUT SHIFT.
[2020-08-21 21:00] VITALS: BP 133/87
[2020-08-21] MEDS ORDERED: ONDANSETRON HCL/PF 4 MG/2 ML VIAL IVP PRN (21:00)
[2020-08-21] MEDS ORDERED: HYDROCODONE/APAP 5/325MG TABLET PO PRN (21:00)
[2020-08-21] MEDS ORDERED: Z GUARD REMEDY 2 OZ OINT TP PRN (21:00)
[2020-08-21] MEDS ORDERED: MAG HYDROX/AL HYDROX/SIMETH 30 ML UDC PO PRN (21:00)
[2020-08-21] MEDS ORDERED: MAGNESIUM HYDROXIDE 30 ML UDC PO PRN (21:00)
[2020-08-21] MEDS ORDERED: ACETAMINOPHEN 325 MG TABLET PO PRN (21:00)
[2020-08-21] MEDS: ENOXAPARIN SODIUM 40 MG/0.4 ML DISP.SYRIN SQ SCH (21:28)
[2020-08-22] VITALS: BP 152/85
[2020-08-22 04:00] VITALS: BP 136/90
[2020-08-22 06:07] LABS: BASOPHILS # (AUTO) 0.1 /CMM (0.0-0.2); BASOPHILS % (AUTO) 1.2 % (0.0-2.0); EOSINOPHILS % (AUTO) 1.7 % (0.0-6.0); HEMATOCRIT 44 % (39-51); HEMOGLOBIN 14.7 g/dL (13.5-17.5); LYMPHOCYTES # (AUTO) 1.9 /CMM (0.8-4.8); LYMPHOCYTES % (AUTO) 28.3 % (20.0-44.0); MEAN CORPUSCULAR HGB CONC 33 g/dl (31.0-36.0); MEAN CORPUSCULAR VOLUME 91 fL (80-96); MONOCYTES # (AUTO) 0.5 /CMM (0.1-1.30); MONOCYTES % (AUTO) 7.9 % (2.0-12.0); NEUTROPHILS # (AUTO) 4.2 /CMM (1.8-8.9); NEUTROPHILS % (AUTO) 60.9 % (43.0-81.0); PLATELET COUNT (AUTO) 231 /CMM (150-450); RED BLOOD CELL COUNT(AUTO) 4.84 MIL/uL (4.5-6.0); WHITE BLOOD COUNT (AUTO) 6.9 K/uL (4.3-11.0)
[2020-08-22 06:18] LABS: CALCIUM, SERUM 8.8 mg/dL (8.5-10.1); CREATININE 1.5 mg/dL (0.6-1.3); POTASSIUM 4.1 mmol/L (3.5-5.1)
--- NOTE | 2020-08-22 06:39 | NUR ---
BUTTON SEWER HAND CLOSING NOTE PATIENT RESTING IN BED. A/OX4. NO RESP DISTRESS. NO PAIN.. TELE MONITOR SINUS RHYTHM / SINUS TACHY WITH BBB AND PVCS. NO DISTRESS. IV ACCESS MAINTAINED IN RAC#18. BED REMAINS LOW AND LOCKED, HOB ELEVATED IN SEMI FOWLERS, SIDE RAILS UP X2, CALL LIGHT WITHIN REACH, CALL LIGHT WITHIN REACH. WILL ENDORSE TO ONCOMING SHIFT.
--- NOTE | 2020-08-22 07:54 | NUR ---
CORRECTIONAL CASEWORK SPECIALIST OPENING NOTE PATIENT IS IN BED RESTING, PATIENT IS IN NO ACUTE DISTRESS. PATIENT IS ON ROOM AIR TOLERATING WELL, NO SOB NOTED. PATIENT IS ON TELE MONITOR READING ST 100S. PATIENT IS ON DAILY WEIGHT. SAFETY PRECAUTIONS ARE ON BED IN THE LOWEST POSITION AND LOCKED, WITH SIDE RAIL UP. CALL LIGHT WITHIN REACH, WILL CONTINUE TO MONITOR CLOSELY THROUGHOUT THE SHIFT.
[2020-08-22 08:18] VITALS: BP 118/76
[2020-08-22] MEDS: PANTOPRAZOLE 40 MG TABLET.DR PO SCH (09:12)
[2020-08-22] MEDS: LOSARTAN POTASSIUM 50 MG TABLET PO SCH (09:13)
[2020-08-22] MEDS: POTASSIUM CHLORIDE 20 MEQ TAB.PRT.SR PO SCH (09:13)
[2020-08-22] MEDS: FUROSEMIDE 40 MG TABLET PO SCH (09:14)
[2020-08-22 12:00] VITALS: BP 136/89
[2020-08-22 16:00] VITALS: BP 116/76
--- NOTE | 2020-08-22 18:57 | NUR ---
SOLAR PROJECT COORDINATION SPECIALIST CLOSING NOTE PATIENT IS IN BED RESTING, PATIENT IS IN NO ACUTE DISTRESS. PATIENT IS ON ROOM AIR TOLERATING WELL, NO SOB NOTED. PATIENT IS ON TELE MONITOR READING ST 92. PATIENT IS ON DAILY WEIGHT. SAFETY PRECAUTIONS ARE ON BED IN THE LOWEST POSITION AND LOCKED, WITH SIDE RAIL UP. CALL LIGHT WITHIN REACH, ENDORSE PATIENT TO POCKET FLAP CREASING MACHINE OPERATOR NURSE FOR JULIA.
--- NOTE | 2020-08-22 19:30 | NUR ---
MS RN OPENING NOTES PATIENT IN BED WITH EYES CLOSED. PATIENT TOLERATING ROOM AIR. NO S/S OF RESPIRATORY DISTRESS. NO C/O OF PAIN AT THE MOMENT. TELE MONITOR IN PLACE READING ST AT 101. SAFETY PRECAUTIONS IN PLACE: BED IN LOWEST, LOCKED POSITION; CALL LIGHT WITHIN REACH. WILL CONTINUE TO MONITOR.
[2020-08-22 20:00] VITALS: BP 128/88
[2020-08-22] MEDS: ENOXAPARIN SODIUM 40 MG/0.4 ML DISP.SYRIN SQ SCH (21:10)
[2020-08-23] VITALS: BP 127/84
[2020-08-23 04:00] VITALS: BP 127/86
[2020-08-23 05:20] VITALS: BP 127/86
[2020-08-23 06:21] LABS: BASOPHILS # (AUTO) 0.1 /CMM (0.0-0.2); EOSINOPHILS % (AUTO) 1.7 % (0.0-6.0); HEMATOCRIT 45 % (39-51); LYMPHOCYTES # (AUTO) 1.8 /CMM (0.8-4.8); LYMPHOCYTES % (AUTO) 19.4 % (20.0-44.0); MEAN CORPUSCULAR HGB CONC 34 g/dl (31.0-36.0); MEAN CORPUSCULAR VOLUME 90 fL (80-96); MONOCYTES # (AUTO) 0.7 /CMM (0.1-1.30); MONOCYTES % (AUTO) 7.6 % (2.0-12.0); NEUTROPHILS # (AUTO) 6.4 /CMM (1.8-8.9); NEUTROPHILS % (AUTO) 70.3 % (43.0-81.0); PLATELET COUNT (AUTO) 239 /CMM (150-450); RED BLOOD CELL COUNT(AUTO) 4.98 MIL/uL (4.5-6.0); WHITE BLOOD COUNT (AUTO) 9.1 K/uL (4.3-11.0)
[2020-08-23 06:38] LABS: CALCIUM, SERUM 8.5 mg/dL (8.5-10.1); CREATININE 1.3 mg/dL (0.6-1.3); MAGNESIUM 1.8 mg/dL (1.8-2.4); POTASSIUM 3.9 mmol/L (3.5-5.1)
--- NOTE | 2020-08-23 06:39 | NUR ---
PANAMA HAT SMEARER CLOSING NOTES PATIENT IN BED, EYES CLOSED. SERIES OF MURMURING TO HIMSELF. ABLE TO MAKE NEEDS KNOWN. NO S/S OF DISTRESS NOTED. TOLERATING ROOM AIR. ALL NEEDS ATTENDED. SCHEDULED MEDICATION ADMINISTERED. TELE MONITOR READING SR-ST 111 BPM. SAFETY PRECAUTIONS KEPT IN PLACE THE WHOLE TIME: BED IN LOWEST, LOCKED POSITION; CALL LIGHT WITHIN REACH. NO SIGNIFICANT CHANGES SINCE LAST SHIFT. DAILY WEIGHT 183 LBS. INTAKE 700ML, UO 625ML. WILL ENDORSE CARE TO MORNING RN.
--- NOTE | 2020-08-23 07:21 | NUR ---
STAGE DIRECTOR OPENING NOTES RECEIVED PATIENT AWAKE IN BED IN NO ACUTE SIGNS OF DISTRESS. A/O X2-3. VERBALLY RESPONSIVE, DENIES PAIN OR ANY DISCOMFORTS AT THIS TIME. ON ROOM AIR TOLERATING WELL, NO SOB NOTED. ON TELE MONITOR WITH CURRENT READING OF ST WITH BBB'S, HR 103, NO C/O CARDIAC [id number] VOICED. IV SL ON RAC G#18 INTACT, PATENT AND FLUSHES WELL. SAFETY PRECAUTIONS IN PLACE: BED IN THE LOWEST POSITION AND LOCKED WITH SIDE RAIL UP X2. CALL LIGHT WITHIN REACH. WILL CONTINUE TO MONITOR PT ACCORDINGLY. .
[2020-08-23 08:00] VITALS: BP 123/84
[2020-08-23] MEDS: PANTOPRAZOLE 40 MG TABLET.DR PO SCH (08:37)
[2020-08-23] MEDS: LOSARTAN POTASSIUM 50 MG TABLET PO SCH (08:37)
[2020-08-23] MEDS: FUROSEMIDE 40 MG TABLET PO SCH (08:37)
[2020-08-23] MEDS: POTASSIUM CHLORIDE 20 MEQ TAB.PRT.SR PO SCH (08:37)
[2020-08-23 16:00] VITALS: BP 120/90
--- NOTE | 2020-08-23 18:37 | NUR ---
MS RN CLOSING NOTES PATIENT ASLEEP IN BED AT THIS TIME, EASILY AROUSABLE. PT IS A/O X2-3. ABLE TO MAKE NEEDS KNOWN. NOTED TALKING TO HIMSELF ON AND OFF DURING THE DAY. ON ROOM AIR TOLERATING WELL, NO SOB NOTED DURING SHIFT. IV SL ON RAC G#18 INTACT, PATENT AND FLUSHES WELL. ALL NEEDS AND CARE PROVIDED WELL. SAFETY PRECAUTIONS IN PLACE: BED IN LOWEST POSITION AND LOCKED WITH SIDE RAILS UP X2. CALL LIGHT WITHIN REACH. WILL ENDORSE CONTINUITY OF CARE TO RADIOLOGY ASSISTANT NURSE.
--- NOTE | 2020-08-23 19:55 | NUR ---
MS RN OPENING NOTES PATIENT IN BED WITH EYES CLOSED. ABLE TO MAKE NEEDS KNOWN AND AMBULATORY. NO S/S OF DISTRESS NOTED. NO C/O PAIN AT THE MOMENT. TOLERATING ROOM AIR. SAFETY PRECAUTIONS IN PLACE: BED IN LOWEST, LOCKED POSITION; CALL LIGHT WITHIN REACH. WILL CONTINUE TO MONITOR.
[2020-08-23 20:00] VITALS: BP 138/84
[2020-08-23] MEDS: ENOXAPARIN SODIUM 40 MG/0.4 ML DISP.SYRIN SQ SCH (21:13)
--- NOTE | 2020-08-23 23:00 | NUR ---
MS RN NOTES I WAS ABLE TO GET A PICTURE OF BLE BUT PATIENT REFUSED ANOTHER PICTURE OF THE BILATERAL HEELS. BILATERAL LOWER EXTREMITIES PICTURE TAKEN AND CHARTED.
--- NOTE | 2020-08-24 06:46 | NUR ---
MS RN CLOSING NOTES 321 PATIENT IN BED WITH EYES CLOSED. SERIES OF TALKING TO HIMSELF. PATIENT ABLE TO MAKE NEEDS KNOWN. NO S/S OF RESPIRATORY DISTRESS. TOLERATING ROOM AIR. NO C/O PAIN. ALL SCHEDULED MEDS ADMINISTERED. ALL NEEDS ATTENDED. SAFETY PRECAUTIONS KEPT ALL TIME: BED IN LOWEST AND LOCKED POSITION, CALL LIGHT WITHIN REACH. PICTURE OF BLE TAKEN AND CHARTED. NO SIGNIFICANT CHANGES SINCE LAST SHIFT. WILL ENDORSE CARE TO MORNING NURSE.
[2020-08-24 06:53] LABS: BASOPHILS # (AUTO) 0.1 /CMM (0.0-0.2); EOSINOPHILS % (AUTO) 2.3 % (0.0-6.0); HEMATOCRIT 50 % (39-51); HEMOGLOBIN 16.9 g/dL (13.5-17.5); LYMPHOCYTES % (AUTO) 20.7 % (20.0-44.0); MEAN CORPUSCULAR HGB CONC 34 g/dl (31.0-36.0); MEAN CORPUSCULAR VOLUME 90 fL (80-96); MONOCYTES # (AUTO) 0.9 /CMM (0.1-1.30); MONOCYTES % (AUTO) 9.1 % (2.0-12.0); NEUTROPHILS # (AUTO) 6.6 /CMM (1.8-8.9); NEUTROPHILS % (AUTO) 66.9 % (43.0-81.0); PLATELET COUNT (AUTO) 264 /CMM (150-450); RED BLOOD CELL COUNT(AUTO) 5.54 MIL/uL (4.5-6.0); WHITE BLOOD COUNT (AUTO) 9.8 K/uL (4.3-11.0)
--- NOTE | 2020-08-24 07:25 | NUR ---
MS RN OPENING NOTE RECEIVED PATIENT IN BED. A/O X2-3. WITH EPISODES OF CONFUSION AND SEEN TALKING TO HIMSELF. ON ROOM AIR, NO SOB NOTED. IN NO APPARENT DISTRESS. DENIES ANY PAIN OR DISCOMFORT AT THIS TIME. IV ACCESS ON R AC #18 G, INTACT. SAFETY MEASURES MAINTAINED. BED IN LOWEST POSITION, BRAKES LOCKED. SIDE RAILS UP X2. CALL LIGHT WITHIN REACH. WILL CONTINUE PLAN OF CARE.
[2020-08-24 07:43] LABS: CALCIUM, SERUM 9.8 mg/dL (8.5-10.1); CREATININE 1.4 mg/dL (0.6-1.3); MAGNESIUM 2.2 mg/dL (1.8-2.4); POTASSIUM 5.1 mmol/L (3.5-5.1)
[2020-08-24 08:04] VITALS: BP 138/95
[2020-08-24] MEDS: PANTOPRAZOLE 40 MG TABLET.DR PO SCH (08:22)
[2020-08-24] MEDS: POTASSIUM CHLORIDE 20 MEQ TAB.PRT.SR PO SCH (08:22)
[2020-08-24] MEDS: LOSARTAN POTASSIUM 50 MG TABLET PO SCH (08:22)
[2020-08-24] MEDS: FUROSEMIDE 40 MG TABLET PO SCH (08:23)
--- NOTE | 2020-08-24 09:59 | NUR ---
WOUND CARE CONSULT: PT ADAMANTLY REFUSED SKIN ASSESSMENT. CURRENT BURTON SCORE IS 21. WILL SEE PRN.
--- NOTE | 2020-08-24 14:30 | NUR ---
MS RN NOTE CONSENT SIGNED BY THE PATIENT FOR NM PULMONARY PERF W/ VENT
--- NOTE | 2020-08-24 14:34 | NUR ---
Cloth Doffer Consult: well services operator consult requested for amphetamine use. Per chart, patient was brought to the hospital on 08/21/2020 for CHF. Patient is a 50-year-old, male. SW met with the patient in his hospital room on the [facility] surgical unit. Patient was alert and oriented x4. Patient presented irritable as evidenced by his statement, I dont need a sr. social media & mobile manager, I already have one. Patient is currently living at home alone [address] [place] [address]; [phone]. Patient stated that he is independent with his ADLs. Patient currently receives Social Security Income. Patient stated he has no history of substance use however, per patients toxicology report patient is positive for amphetamine. SW discussed with the patient that he is positive for amphetamine and patient stated I dont want to talk about that. Its not correct. Patient did not want to discuss his history of mental illness. Per patients chart, patient has a history of Depression and Schizophrenia. Patient denies any current thoughts of suicide or homicide. Discharge plans were discussed with the patient and patient stated that he plans to return to his prior living arrangements. Towards the end of this assessment, patient observed to be guarded, limited in his responses, and not very engaged in dialogue. SW unable to assess needs for community resources. PLAN: Patient will return home once he is medically stable. No further SS interventions at this time however, SW will remain available as needed.
--- NOTE | 2020-08-24 15:30 | NUR ---
MS RN NOTE PATIENT WAS BROUGHT DOWN FOR NM PULMONARY PERF W/ VENT.
[2020-08-24 16:00] VITALS: BP 134/97
--- NOTE | 2020-08-24 18:17 | NUR ---
MS RN NOTE PATIENT IN BED. A/O X2-3. CONFUSED. ON ROOM AIR, NO SOB NOTED. SHOWS NO SIGNS OF RESPIRATORY DISTRESS. DENIES ANY PAIN OR DISCOMFORT AT THIS TIME. IV ACCESS ON R AC #18 G, INTACT AND PATENT. ALL DUE MEDS GIVEN ORDERED. ABLE TO MAKE NEEDS KNOWN. SAFETY MEASURES MAINTAINED. BED IN LOWEST POSITION, BRAKES LOCKED. SIDE RAILS UP X2. CALL LIGHT WITHIN REACH. WILL ENDORSE CONTINUITY OF CARE TO ONCOMING SHIFT.
--- NOTE | 2020-08-24 19:30 | NUR ---
MS/RN OPENING NOTES PATIENT RESTING IN BED. PATIENT IS ALERT AND ORIENTED X 2-3. PATIENT BREATHING IS EVEN AND UNLABORED. PATIENT IN NO SIGNS OF SOB OR RESPIRATORY DISTRESS. PATIENT STATES NO PAIN AT THIS TIME. SAFETY MEASURES ARE IN PLACE, BED IS LOCKED AND PLACED IN THE LOWEST POSITION, CALL LIGHT IS WITHIN REACH. WILL CONTINUE WITH PATIENT PLAN OF CARE.
[2020-08-24 20:00] VITALS: BP 135/78
[2020-08-24] MEDS: ENOXAPARIN SODIUM 40 MG/0.4 ML DISP.SYRIN SQ SCH (21:21)
[2020-08-25 06:24] LABS: BASOPHILS # (AUTO) 0.1 /CMM (0.0-0.2); BASOPHILS % (AUTO) 1.5 % (0.0-2.0); EOSINOPHILS % (AUTO) 1.9 % (0.0-6.0); HEMATOCRIT 53 % (39-51); LYMPHOCYTES # (AUTO) 2.2 /CMM (0.8-4.8); LYMPHOCYTES % (AUTO) 22.7 % (20.0-44.0); MEAN CORPUSCULAR HGB CONC 34 g/dl (31.0-36.0); MEAN CORPUSCULAR VOLUME 90 fL (80-96); MONOCYTES # (AUTO) 0.9 /CMM (0.1-1.30); MONOCYTES % (AUTO) 9.6 % (2.0-12.0); NEUTROPHILS # (AUTO) 6.4 /CMM (1.8-8.9); NEUTROPHILS % (AUTO) 64.3 % (43.0-81.0); PLATELET COUNT (AUTO) 286 /CMM (150-450); WHITE BLOOD COUNT (AUTO) 9.9 K/uL (4.3-11.0)
--- NOTE | 2020-08-25 06:40 | NUR ---
MS/RN CLOSING NOTES PATIENT RESTING IN BED. PATIENT IS ALERT AND ORIENTED X 2-3. PATIENT BREATHING IS EVEN AND UNLABORED. PATIENT IN NO SIGNS OF SOB OR RESPIRATORY DISTRESS. PATIENT STATES NO PAIN AT THIS TIME. ALL PATIENT NEEDS HAVE BEEN MET DURING SHIFT. SAFETY MEASURES ARE IN PLACE, BED IS LOCKED AND PLACED IN THE LOWEST POSITION, CALL LIGHT IS WITHIN REACH. WILL CONTINUE WITH PATIENT PLAN OF CARE.
[2020-08-25 07:00] LABS: CALCIUM, SERUM 9.5 mg/dL (8.5-10.1); CREATININE 1.2 mg/dL (0.6-1.3); MAGNESIUM 2.4 mg/dL (1.8-2.4); POTASSIUM 4.1 mmol/L (3.5-5.1)
[2020-08-25] MEDS: PANTOPRAZOLE 40 MG TABLET.DR PO SCH (07:30)
[2020-08-25 07:57] VITALS: BP 124/91
[2020-08-25] MEDS: FUROSEMIDE 40 MG TABLET PO SCH (09:00)
[2020-08-25] MEDS: POTASSIUM CHLORIDE 20 MEQ TAB.PRT.SR PO SCH (09:00)
[2020-08-25] MEDS ORDERED: POTA20TA83 PO (10:29)
[2020-08-25] MEDS ORDERED: FURO40TA5 PO (10:29)
--- NOTE | 2020-08-25 11:18 | NUR ---
RN MS NOTES PT AWAKE, ALERT AND ORIENTED, PT ABLE TO AMBULATE WITH STEADY GAIT, NO COMPLAINT OF PAIN OR ANY DISCOMFORT, RESPIRATIONS NORMAL, CALL LIGHT WITHIN REACH, DISCHARGE ORDER GIVEN BY DR. JANE, DISCHARGE AND MEDICATION INSTRUCTIONS PROVIDED TO PT, VERBALIZED UNDERSTANDING, PT REFUSED SKIN CHECK AND SKIN PHOTOS, SENT PT'S NEW PRESCRIPTION ELECTRONICALLY TO PT'S PREFERRED PHARMACY, BELONGINGS ACCOUNTED FOR, ASSISTED TO HOSPITAL LOBBY, PICKED UP BY HIS VOCATIONAL INSTRUCTOR, LEFT VIA PRIVATE CAR IN STABLE CONDITION.
== END 2020-08-25 11:15 | disposition home or self-care (01) | DRG 194 ==
LOC: ER 14:45 → TELE 20:05 → MED 08-23 13:47
PROVIDERS: ADMIT Nurse Practitioner Family; ATTEND Internal Medicine
DX: I50.23 Acute on chronic systolic (congestive) heart failure (principal); N17.0 Acute kidney failure with tubular necrosis; I27.20 Pulmonary hypertension, unspecified; E44.1 Mild protein-calorie malnutrition; F20.9 Schizophrenia, unspecified; E88.09 Other disorders of plasma-protein metabolism, not elsewhere classified; F32.9 Major depressive disorder, single episode, unspecified; E11.9 Type 2 diabetes mellitus without complications; F15.10 Other stimulant abuse, uncomplicated; Z68.27 Body mass index [BMI] 27.0-27.9, adult; I42.9 Cardiomyopathy, unspecified; Z59.0 Homelessness; Z20.822 Contact with and (suspected) exposure to COVID-19
CPT/HCPCS: 36415; 71045-TC; 78582; 80048-TC; 80061-TC; 80076-TC; 83735-TC; 83880; 84484-TC; 85025-TC; 85730-TC; 87081-TC; 93307-TC; 93970-TC; A9540; A9567; G0378; J1650; J1940

== ENCOUNTER 2020-09-16 12:15 | Inpatient (IN) | payer OTHER ==
[~2020-09-16] VITALS: Ht 170.2 cm; Wt 80.6 kg
[~2020-09-16 12:15] MED LIST changes: +ARIP10TA17 PO; -FURO20TA4 PO; +FURO40TA5 PO; +LISI10TA29 PO; -LOSA50TA3 PO; +POTA20TA83 PO; -SILD20TA PO
--- NOTE | 2020-09-16 12:30 | NUR ---
BIB [facility] FROM HOME,ABDOMINAL PAIN AND NAUSEA SINCE YESTERDAY. ABDOMEN SOFT AND NON-DISTENDED. RATES PAIN 8/10. DENIES SOB. RESPIRATION REGULAR AND UNLABORED. ATTACHED ON A MONITOR. WARM BLANKET PROVIDED.
[2020-09-16] MEDS ORDERED: MAG HYDROX/AL HYDROX/SIMETH 30 ML UDC ONE (12:56)
[2020-09-16] MEDS ORDERED: PANTOPRAZOLE 40 MG VIAL ONE (12:56)
[2020-09-16] MEDS ORDERED: ONDANSETRON HCL/PF 4 MG/2 ML VIAL ONE (12:56)
[2020-09-16] MEDS ORDERED: LIDOCAINE VISCOUS 2% UD 15 ML UDC ONE (12:56)
[2020-09-16] MEDS ORDERED: LIDOCAINE VISCOUS 2% UD 15 ML UDC MM ONE (13:00)
[2020-09-16] MEDS ORDERED: IV NS 0.9% 1,000 ML BAG IV ONE (13:00)
[2020-09-16] MEDS ORDERED: PANTOPRAZOLE 40 MG VIAL IV ONE (13:00)
[2020-09-16] MEDS ORDERED: ONDANSETRON HCL/PF 4 MG/2 ML VIAL IVP ONE (13:00)
[2020-09-16] MEDS ORDERED: MAG HYDROX/AL HYDROX/SIMETH 30 ML UDC PO ONE (13:00)
[2020-09-16 13:02] LABS: BASOPHILS # (AUTO) 0.1 /CMM (0.0-0.2); BASOPHILS % (AUTO) 0.9 % (0.0-2.0); EOSINOPHILS % (AUTO) 0.8 % (0.0-6.0); HEMATOCRIT 51 % (39-51); LYMPHOCYTES # (AUTO) 2.9 /CMM (0.8-4.8); LYMPHOCYTES % (AUTO) 28.4 % (20.0-44.0); MEAN CORPUSCULAR HGB CONC 33 g/dl (31.0-36.0); MEAN CORPUSCULAR VOLUME 92 fL (80-96); MONOCYTES # (AUTO) 0.7 /CMM (0.1-1.30); MONOCYTES % (AUTO) 7.3 % (2.0-12.0); NEUTROPHILS # (AUTO) 6.4 /CMM (1.8-8.9); NEUTROPHILS % (AUTO) 62.6 % (43.0-81.0); PLATELET COUNT (AUTO) 257 /CMM (150-450); RED BLOOD CELL COUNT(AUTO) 5.57 MIL/uL (4.5-6.0); WHITE BLOOD COUNT (AUTO) 10.2 K/uL (4.3-11.0)
--- NOTE | 2020-09-16 13:17 | NUR ---
US TECH AT BEDSIDE
[2020-09-16 13:21] LABS: ALANINE AMINOTRANSFERASE 33 U/L (12-78); ALBUMIN 3.6 g/dL (3.4-5.0); ALKALINE PHOSPHATASE 47 U/L (46-116); ASPARTATE AMINOTRANSFERASE 45 U/L (15-37); BILIRUBIN,DIRECT 0.1 mg/dL (0.0-0.2); BILIRUBIN,TOTAL 0.8 mg/dL (0.2-1.0); CALCIUM, SERUM 9.3 mg/dL (8.5-10.1); CARBON DIOXIDE 25 mmol/L (21-32); CHLORIDE 98 mmol/L (98-107); GLUCOSE 149 mg/dL (74-106); LIPASE 72 U/L (73-393); SODIUM SERUM 131 mmol/L (136-145); TOTAL PROTEIN, SERUM 7.6 g/dL (6.4-8.2); UREA NITROGEN, BLOOD 34 mg/dL (7-18)
[2020-09-16 13:25] LABS: POTASSIUM 6.6 mmol/L (3.5-5.1)
[2020-09-16] MEDS ORDERED: FUROSEMIDE 40 MG/4 ML VIAL IV ONE (13:30)
[2020-09-16] MEDS ORDERED: ALBUTEROL FS 2.5 MG/3 ML VIAL.NEB NEB ONE (13:30)
[2020-09-16] MEDS ORDERED: CALCIUM CHLORIDE 1,000 MG/10 ML DISP.SYRIN IV ONE (13:30)
[2020-09-16] MEDS ORDERED: INSULIN REGULAR, HUMAN 100 UNIT/ML 10 ML VIAL IV ONE (13:30)
[2020-09-16] MEDS ORDERED: DEXTROSE 50%-WATER 50 ML DISP.SYRIN IV ONE (13:30)
[2020-09-16] MEDS ORDERED: SODIUM BICARBONATE SYR 50 MEQ/50 ML DISP.SYRIN IV ONE (13:30)
--- NOTE | 2020-09-16 13:30 | NUR ---
CALLED [facility], PAGED DR JANE FOR ADMISSION
[2020-09-16] MEDS ORDERED: DEXTROSE 50%-WATER 50 ML DISP.SYRIN ONE (13:51)
[2020-09-16] MEDS ORDERED: FUROSEMIDE 20 MG/2 ML VIAL ONE (13:51)
[2020-09-16] MEDS ORDERED: INSULIN REGULAR, HUMAN 100 UNIT/ML 10 ML VIAL ONE (13:51)
[2020-09-16] MEDS ORDERED: CALCIUM CHLORIDE 1,000 MG/10 ML DISP.SYRIN ONE (13:51)
[2020-09-16] MEDS ORDERED: SODIUM BICARBONATE SYR 50 MEQ/50 ML DISP.SYRIN ONE (13:51)
[2020-09-16] MEDS ORDERED: ALBUTEROL FS 2.5 MG/3 ML VIAL.NEB ONE (13:54)
--- NOTE | 2020-09-16 14:17 | NUR ---
MIDLINE NURSE AT BEDSIDE
[2020-09-16] MEDS ORDERED: CARV3.12 PO (14:40)
[2020-09-16] MEDS ORDERED: METO-357 PO (14:40)
--- NOTE | 2020-09-16 15:04 | NUR ---
REQUESTED FOR BED FROM NURSING SUP.
--- NOTE | 2020-09-16 15:15 | NUR ---
Dalton owen in [facility] - 09/16/20 at 1516 by ANDRIY REPORT GIVEN TO MEL MOSES JULIA.
--- NOTE | 2020-09-16 15:15 | NUR ---
REPORT GIVEN TO MEL MONIQUE FOR JULIA.
--- NOTE | 2020-09-16 15:53 | NUR ---
BED 329-1
[2020-09-16 16:18] VITALS: BP 112/58
--- NOTE | 2020-09-16 16:18 | NUR ---
RECEIVED PATIENT FROM THE ER. PATIENT IS A 50 YR-OLD MALE, ADMITTED FROM HOME WITH A CHIEF COMPLAINTS OF ABDOMINAL PAIN AND NAUSEA SINCE YESTERDAY. ADMITTING DIAGNOSIS IS HYPERKALEMIA. ALERT AND ORIENTED X4, ABLE TO MAKE NEEDS KNOWN. NO SOB NOTED. ON ROOM AIR. NO DISCOMFORTS REPORTED AT THIS TIME. SKIN INTACT. PATIENT ON TELE MONITOR. IV SITE ON RIGHT UPPER MIDLINE #20 IS PATENT AND FLUSHING WELL. AMBULATORY WITH STAND BY ASSIST. SAFETY PRECAUTIONS OBSERVED, BED IS LOCKED AND ON LOWEST POSITION, CALL LIGHTS WITHIN REACH. WILL CONTINUE TO MONITOR.
--- NOTE | 2020-09-16 16:30 | NUR ---
PATIENT TRANSFERRED TO ROOM 329-1 VIA ACLS PROTOCOL. NO DISTRESS NOTED. ENDORSED TO RHIANNON MONIQUE.
[2020-09-16] MEDS ORDERED: HYDROCODONE/APAP 5/325MG TABLET PO PRN (18:00)
[2020-09-16] MEDS ORDERED: MAG HYDROX/AL HYDROX/SIMETH 30 ML UDC PO PRN (18:00)
[2020-09-16] MEDS ORDERED: ACETAMINOPHEN 325 MG TABLET PO PRN (18:00)
[2020-09-16] MEDS ORDERED: MAGNESIUM HYDROXIDE 30 ML UDC PO PRN (18:00)
[2020-09-16] MEDS ORDERED: Z GUARD REMEDY 2 OZ OINT TP PRN (18:00)
[2020-09-16] MEDS ORDERED: ONDANSETRON HCL/PF 4 MG/2 ML VIAL IVP PRN (18:00)
[2020-09-16 18:28] LABS: CREATININE 1.9 mg/dL (0.6-1.3); POTASSIUM 4.6 mmol/L (3.5-5.1)
--- NOTE | 2020-09-16 19:00 | NUR ---
ZOFRAN 4MG/2ML GIVEN VIA IV PUSH BUT CURRENTLY NOT EFFECTIVE. WILL ENDORSE TO THE NEXT SHIFT TO MONITOR.
--- NOTE | 2020-09-16 19:01 | NUR ---
TELE/RN CLOSING NOTES PATIENT IS IN BED, ALERT AND ORIENTED X4, ABLE TO MAKE NEEDS KNOWN. NO SOB NOTED. ON ROOM AIR. NAUSEA REPORTED BY PATIENT AND ZOFRAN 4MG/2ML GIVEN VIA IV PUSH AT 18:07. EFFECTIVE. SKIN INTACT. PATIENT ON TELE MONITOR WITH 91 HR SINUS RHYTHM W/ PVCS AND BBB. IV SITE ON RIGHT UPPER MIDLINE #20 IS PATENT AND FLUSHING WELL. AMBULATORY WITH STAND BY ASSIST. ALL ORDERS VERIFIED AND CARRIED OUT. SAFETY PRECAUTIONS OBSERVED, BED IS LOCKED AND ON LOWEST POSITION, CALL LIGHTS WITHIN REACH. WILL ENDORSE TO THE NEXT SHIFT FOR CONTINUOUS MONITORING.
[2020-09-16 20:00] VITALS: BP 71/55
[2020-09-16] MEDS ORDERED: IV NS 0.9% 500 ML IV ONE (20:30)
--- NOTE | 2020-09-16 20:30 | NUR ---
MS/TELE/RN BP 71/55 HR 92, C/O MILD DIZZYNESS AND COLD AND CLAMMY SKIN BUT PATIENT WAS AWAKE, ALERT, AND ORIENTED, NOTIFIED AUREA MURGUIA DNP, WITH ORDER OF NS 500 MLS BOLUS WIDE OPEN, WAS RECEIVED. ORDER CARRIED OUT. NS BOLUS WIDE OPEN STARTED AT THIS TIME, WILL MONITOR.
--- NOTE | 2020-09-16 20:57 | NUR ---
MS/TELE/RN NS 500 MLS BOLUS IS FINISHED, BP 93/68, HR 90, PATIENT APPEAR SLEEPING NOW, COMFORTABLE. WILL MONITOR.
--- NOTE | 2020-09-16 21:17 | NUR ---
MS/TELE/RN C/O UPSET STOMACH, MAALOX 30 MLS PO WAS GIVEN ORDERED, WILL MONITOR.
[2020-09-16] MEDS ORDERED: METOPROLOL SUCCINATE 50 MG TAB.SR.24H PO SCH (22:00)
[2020-09-16 22:25] VITALS: BP 83/48
[2020-09-16 22:45] LABS: BASOPHILS # (AUTO) 0.1 /CMM (0.0-0.2); EOSINOPHILS % (AUTO) 0.3 % (0.0-6.0); HEMATOCRIT 49 % (39-51); HEMOGLOBIN 15.9 g/dL (13.5-17.5); LYMPHOCYTES # (AUTO) 2.8 /CMM (0.8-4.8); LYMPHOCYTES % (AUTO) 18.7 % (20.0-44.0); MEAN CORPUSCULAR HGB CONC 33 g/dl (31.0-36.0); MEAN CORPUSCULAR VOLUME 92 fL (80-96); MONOCYTES % (AUTO) 6.5 % (2.0-12.0); NEUTROPHILS # (AUTO) 11.1 /CMM (1.8-8.9); NEUTROPHILS % (AUTO) 73.5 % (43.0-81.0); PLATELET COUNT (AUTO) 234 /CMM (150-450); RED BLOOD CELL COUNT(AUTO) 5.26 MIL/uL (4.5-6.0); WHITE BLOOD COUNT (AUTO) 15.1 K/uL (4.3-11.0)
[2020-09-16 23:01] LABS: CALCIUM, SERUM 9.6 mg/dL (8.5-10.1); CREATININE 2.2 mg/dL (0.6-1.3); MAGNESIUM 2.4 mg/dL (1.8-2.4); PHOSPHORUS 5.6 mg/dL (2.5-4.9); POTASSIUM 5.2 mmol/L (3.5-5.1)
[2020-09-17] VITALS: BP 98/72
--- NOTE | 2020-09-17 02:06 | NUR ---
MS/TELE/RN AT 2150, FOUND PATIENT DIAPHORETIC, COOL AND CLAMMY SKIN, LETHARGIC, ACCU CHECK DONE, BLOOD SUGAR 88, BP 81/53, HR 88, C/O DIZZINESS. CHARGE NURSE CHAVA, MADE AWARE AND ASSESSED THE PATIENT, BP 83/48,, HR 90, UNABLE TO OBTAIN O2 SAT AT 2L 02, NRM AT 15L WAS APPLIED, RAPID RESPONSE WAS CALLED AT 2200. RAPID RESPONSE ARRIVED AT 2199, BP 87/65, HR 83, O2 SAT 97% ON NRM, ACCU CHECK BLOOD SUGAR 109. NS 250 MLS BOLUS WAS ADMINISTERED, GIL VILLAR, WAS NOTIFIED WITH LAB ORDERS RECEIVED. AT 2214, BP 97/61, HR 79, O2 SAT 97%, PATIENT BECAME MORE ALERT AND VERBAL, APPLE JUICE WAS GIVEN, O2 WAS TITRATED DOWN TO 3L NC WITH O2 SAT 95%. RAPID RESPONSE ENDED AT 2224 BP 93/68, HR 90, PATIENT WAS AWAKE, ALERT, VERBAL, ABLE TO ANSWER TO QUESTIONS OF ICU CHARGE NURSE CORRECTLY. AT 2321, NS BOLUS WAS FINISHED, BP 117/65, HR 90, O2 SAT 95%. GIL VILLAR, WAS MADE AWARE OF THE LAB RESULTS. NO FURTHER ORDERS WAS RECEIVED.WILL CONTINUE TO MONITOR PATIENT.
--- NOTE | 2020-09-17 02:34 | NUR ---
MS/TELE/RN PATIENT IS SLEEPING AT THIS TIME, APPEAR COMFORTABLE, NO SIGNS OF DISTRESS NOTED, CALL LIGHT IN REACH. WILL CONTINUE TO MONITOR.
[2020-09-17 04:00] VITALS: BP 101/70
[2020-09-17 06:18] LABS: BASOPHILS # (AUTO) 0.1 /CMM (0.0-0.2); BASOPHILS % (AUTO) 1.2 % (0.0-2.0); EOSINOPHILS % (AUTO) 0.3 % (0.0-6.0); HEMATOCRIT 46 % (39-51); HEMOGLOBIN 15.3 g/dL (13.5-17.5); LYMPHOCYTES # (AUTO) 2.5 /CMM (0.8-4.8); LYMPHOCYTES % (AUTO) 19.4 % (20.0-44.0); MEAN CORPUSCULAR HGB CONC 33 g/dl (31.0-36.0); MEAN CORPUSCULAR VOLUME 91 fL (80-96); MONOCYTES # (AUTO) 0.9 /CMM (0.1-1.30); MONOCYTES % (AUTO) 7.2 % (2.0-12.0); NEUTROPHILS # (AUTO) 9.2 /CMM (1.8-8.9); NEUTROPHILS % (AUTO) 71.9 % (43.0-81.0); PLATELET COUNT (AUTO) 234 /CMM (150-450); RED BLOOD CELL COUNT(AUTO) 5.06 MIL/uL (4.5-6.0); WHITE BLOOD COUNT (AUTO) 12.7 K/uL (4.3-11.0)
--- NOTE | 2020-09-17 06:43 | NUR ---
MS/TELE/RN PATIENT AROUSES EASILY, COMFORTABLE, NO DISTRESS NOTED, CALL LIGHT IN REACH. ASKED THE PATIENT IF HE URINATED SINCE 7 PM LAST NIGHT, PATIENT ANSWERED "NO". ASKED PATIENT IF HE WANTS TO URINATE, PATIENT SAID, "I'LL DO IN A LITTLE BIT". WILL ENDORSE TO NEXT RN. ALL NEEDS ATTENDED AT THIS TIME, WILL CONTINUE TO MONITOR.
[2020-09-17 07:05] LABS: CALCIUM, SERUM 9.8 mg/dL (8.5-10.1); CREATININE 2.1 mg/dL (0.6-1.3); MAGNESIUM 2.4 mg/dL (1.8-2.4); PHOSPHORUS 5.1 mg/dL (2.5-4.9); POTASSIUM 4.9 mmol/L (3.5-5.1)
[2020-09-17 08:05] VITALS: BP 103/77
--- NOTE | 2020-09-17 08:13 | NUR ---
TELE/RN OPENING NOTE PATIENT ASLEEP IN BED, AROUSES EASILY. COMFORTABLE, NO DISTRESS NOTED, CALL LIGHT IN REACH. CURRENTLY ON ROOM AIR, NO S/S OF SOB NOTED. AMBULATORY WITH STAND BY ASSIST. IV SITE AT RIGHT UPPER ARM MIDLINE ON HEPLOCK, PATENT AND FLUSHES WELL. ON TELEMONITOR READING CURRENTLY AT SR 82. WILL CONTINUE TO MONITOR.
[2020-09-17 09:00] VITALS: BP 103/77
[2020-09-17] MEDS ORDERED: FUROSEMIDE 40 MG TABLET PO SCH (09:00)
[2020-09-17] MEDS ORDERED: CARVEDILOL 3.125 MG TABLET PO SCH (09:00)
--- NOTE | 2020-09-17 09:11 | NUR ---
CARVEDILOL 3.125MG TAB PO WITHHELD DUE TO LOW SBP OF 103/77, HR-77. WILL CONTINUE TO MONITOR PATIENT.
--- NOTE | 2020-09-17 10:00 | NUR ---
MS/RN NOTES PATIENT IS ON ROOM AIR SATURATION 98%. PATIENT IN NO APPARENT RESPIRATORY DISTRESS NOTED. WILL CONTINUE TO MONITOR.
[2020-09-17 11:27] LABS: BILIRUBIN,URINE NEGATIVE (NEGATIVE); COLOR,URINE YELLOW (YELLOW); LEUKOCYTE ESTERASE ,URINE NEGATIVE (NEGATIVE); NITRITE, URINE NEGATIVE (NEGATIVE); PROTEIN,URINE 100 mg/dl (NEGATIVE); UGLUCOSE NEGATIVE (NEGATIVE); UROBILINOGEN,URINE 0.2 EU/dL (0.2)
[2020-09-17 11:50] LABS: BACTERIA,URINE None seen /HPF (None Seen); RBC,URINE NONE SEEN /HPF (0-2); SQUAMOUS EPITHELIAL CELL,UR Few /HPF (None Seen); WBC,URINE 0-2 /HPF (0-3)
[2020-09-17 12:27] LABS: CREATININE, URINE 154.5 MG/DL (30.0-125.0); URINE TOTAL PROTEIN 83.1 mg/dL (0-11.9)
[2020-09-17 12:56] LABS: EOSINOPHIL,URINE None Seen
--- NOTE | 2020-09-17 13:19 | NUR ---
PATIENT IS MEDICALLY STABLE AND WAS DISCHARGE PER MD ORDER. DISCHARGE INSTRUCTIONS GIVEN AND PATIENT ABLE TO VERBALIZED UNDERSTANDING. ROLL DOUGH DIVIDER SHONDA ARRANGED AN UBER PERENNIAL HOUSE MANAGER FOR THE PATIENT. PATIENT IS ALERT AND ORIENTED X4, AMBULATORY AND LEFT HOSPITAL AND GOT PICKED UP BY UBER.
== END 2020-09-17 13:20 | disposition home or self-care (01) | DRG 469 ==
LOC: ER 12:27 → TELE 15:59 → MED 09-17 10:49
PROVIDERS: ADMIT Internal Medicine; ATTEND Internal Medicine
DX: N17.0 Acute kidney failure with tubular necrosis (principal); I50.23 Acute on chronic systolic (congestive) heart failure; I27.20 Pulmonary hypertension, unspecified; E87.5 Hyperkalemia; E44.1 Mild protein-calorie malnutrition; E87.1 Hypo-osmolality and hyponatremia; K76.0 Fatty (change of) liver, not elsewhere classified; E86.1 Hypovolemia; E88.09 Other disorders of plasma-protein metabolism, not elsewhere classified; I11.0 Hypertensive heart disease with heart failure; F20.9 Schizophrenia, unspecified; F15.10 Other stimulant abuse, uncomplicated; F32.9 Major depressive disorder, single episode, unspecified; E78.5 Hyperlipidemia, unspecified; Z68.27 Body mass index [BMI] 27.0-27.9, adult; Z20.822 Contact with and (suspected) exposure to COVID-19
CPT/HCPCS: 36415; 71045-TC; 76705-TC; 76770-TC; 80048-TC; 80076-TC; 81001; 82570-TC; 82962-TC; 83690-TC; 83735-TC; 83880; 84100-TC; 84155-TC; 84300-TC; 84484-TC; 85025-TC; 87081-TC; C9113; C9803; G0378; J1815; J1940; J2405; J3490; J7030; J7040

== ENCOUNTER 2020-09-22 00:44 | Inpatient (IN) | payer OTHER ==
[~2020-09-22] VITALS: Ht 170.2 cm; Wt 87.5 kg
[~2020-09-22 00:44] MED LIST changes: -ARIP10TA17 PO; +CARV3.12 PO; -LISI10TA29 PO; +METO-357 PO; -POTA20TA83 PO
[2020-09-22] MEDS ORDERED: IV NS 0.9% 500 ML BAG IV ONE (01:00)
--- NOTE | 2020-09-22 01:02 | NUR ---
[id number] home, c/o slurring of speech that started 1 hour ago. bg 97 investigation division captain. On room air, breathing evenly and unlabored. Connected to the monitor and pulse ox. kept comfortable, will continue to monitor accordingly.
[2020-09-22 01:11] LABS: BASOPHILS # (AUTO) 0.2 /CMM (0.0-0.2); BASOPHILS % (AUTO) 1.4 % (0.0-2.0); EOSINOPHILS % (AUTO) 1.5 % (0.0-6.0); HEMATOCRIT 46 % (39-51); HEMOGLOBIN 15.4 g/dL (13.5-17.5); LYMPHOCYTES # (AUTO) 3.1 /CMM (0.8-4.8); LYMPHOCYTES % (AUTO) 28.6 % (20.0-44.0); MEAN CORPUSCULAR HGB CONC 34 g/dl (31.0-36.0); MEAN CORPUSCULAR VOLUME 91 fL (80-96); MONOCYTES # (AUTO) 0.7 /CMM (0.1-1.30); MONOCYTES % (AUTO) 6.7 % (2.0-12.0); NEUTROPHILS # (AUTO) 6.6 /CMM (1.8-8.9); NEUTROPHILS % (AUTO) 61.8 % (43.0-81.0); PLATELET COUNT (AUTO) 214 /CMM (150-450); RED BLOOD CELL COUNT(AUTO) 5.02 MIL/uL (4.5-6.0); WHITE BLOOD COUNT (AUTO) 10.8 K/uL (4.3-11.0)
[2020-09-22 01:30] LABS: CALCIUM, SERUM 9.5 mg/dL (8.5-10.1); CARBON DIOXIDE 28 mmol/L (21-32); CHLORIDE 101 mmol/L (98-107); CREATININE 1.5 mg/dL (0.6-1.3); GLUCOSE 104 mg/dL (74-106); POTASSIUM 3.9 mmol/L (3.5-5.1); SODIUM SERUM 137 mmol/L (136-145); UREA NITROGEN, BLOOD 21 mg/dL (7-18)
[2020-09-22 01:37] LABS: SERUM AMMONIA 16 umol/L (11-32)
[2020-09-22 01:38] LABS: ALANINE AMINOTRANSFERASE 75 U/L (12-78); ALBUMIN 3.5 g/dL (3.4-5.0); ALKALINE PHOSPHATASE 56 U/L (46-116); ASPARTATE AMINOTRANSFERASE 34 U/L (15-37); BILIRUBIN,DIRECT 0.1 mg/dL (0.0-0.2); BILIRUBIN,TOTAL 0.5 mg/dL (0.2-1.0); TOTAL PROTEIN, SERUM 7.4 g/dL (6.4-8.2)
[2020-09-22 01:39] LABS: ACETAMINOPHEN < 2 ug/ml (10-30); ALCOHOL, BLOOD < 3 mg/dL (0-0)
--- NOTE | 2020-09-22 05:34 | NUR ---
pt going to tele 311.1
--- NOTE | 2020-09-22 06:14 | NUR ---
report given to Jose MONIQUE for zoë
[2020-09-22 06:50] VITALS: BP 131/61
--- NOTE | 2020-09-22 06:54 | NUR ---
wheeled patient via gurney accompanied by RN and emt in no distress. RN assigned at bedside to assume care.
--- NOTE | 2020-09-22 06:55 | NUR ---
cable splicer assistant notes Endorsed to ENEIDA Alicia.
[2020-09-22] MEDS ORDERED: MAGNESIUM HYDROXIDE 30 ML UDC PO PRN (07:30)
[2020-09-22] MEDS ORDERED: ONDANSETRON HCL/PF 4 MG/2 ML VIAL IVP PRN (07:30)
[2020-09-22] MEDS ORDERED: ZOLPIDEM TARTRATE 5 MG TABLET PO PRN (07:30)
[2020-09-22] MEDS ORDERED: ACETAMINOPHEN 325 MG TABLET PO PRN (07:30)
[2020-09-22] MEDS ORDERED: HYDROCODONE/APAP 5/325MG TABLET PO PRN (07:30)
[2020-09-22] MEDS ORDERED: FURO-144 PO (07:41)
[2020-09-22 08:00] VITALS: BP 113/83
--- NOTE | 2020-09-22 08:00 | NUR ---
RN OPENING NO PATIENT ADMITTED FROM ER, ADMITTING DX R/O STROKE. AO X4, ABLE TO RESPONDS ALL STIMULI. NO DISTRESS OBSERVED AT THIS TIME. SKIN IS WARM TO TOUCH, KEEP CLEAN/DRY, INTACT IV SITE. RESPIRATORY EVEN AND UNLABORED IN ROOM AIR. KEPT ELEVATED HOB FOR ENSURE AIRWAY AND ASPIRATION PRECAUTION, ALSO LOWEST BED POSITION FOR SAFETY. CALL LIGHT WITHIN REACH, WILL CONTINUE TO MONITOR.
[2020-09-22 08:27] LABS: BASOPHILS # (AUTO) 0.1 /CMM (0.0-0.2); EOSINOPHILS % (AUTO) 1.8 % (0.0-6.0); HEMATOCRIT 42 % (39-51); HEMOGLOBIN 13.9 g/dL (13.5-17.5); LYMPHOCYTES # (AUTO) 2.7 /CMM (0.8-4.8); LYMPHOCYTES % (AUTO) 26.9 % (20.0-44.0); MEAN CORPUSCULAR HGB CONC 33 g/dl (31.0-36.0); MEAN CORPUSCULAR VOLUME 92 fL (80-96); MONOCYTES # (AUTO) 0.7 /CMM (0.1-1.30); MONOCYTES % (AUTO) 6.8 % (2.0-12.0); NEUTROPHILS # (AUTO) 6.3 /CMM (1.8-8.9); NEUTROPHILS % (AUTO) 63.5 % (43.0-81.0); PLATELET COUNT (AUTO) 186 /CMM (150-450); RED BLOOD CELL COUNT(AUTO) 4.56 MIL/uL (4.5-6.0)
[2020-09-22 08:57] LABS: THYROID STIMULATING HORMONE 3.587 uIU/mL (0.358-3.74)
[2020-09-22 08:58] LABS: ALBUMIN 3.2 g/dL (3.4-5.0); BILIRUBIN,TOTAL 0.5 mg/dL (0.2-1.0); CALCIUM, SERUM 9.1 mg/dL (8.5-10.1); CREATININE 1.4 mg/dL (0.6-1.3); POTASSIUM 4.8 mmol/L (3.5-5.1); TOTAL PROTEIN, SERUM 6.5 g/dL (6.4-8.2)
[2020-09-22] MEDS: ASPIRIN 81 MG TAB.CHEW PO SCH (09:11)
[2020-09-22] MEDS: IV NS 0.9% 1,000 ML IV PRN (09:13)
--- NOTE | 2020-09-22 10:00 | NUR ---
Informed patient sign and symptoms of stroke:abnormal balance, eyes, arm, speech, and terrible headache call 911 or ask help some one to see health provider immediately. Patient verbally understand.
--- NOTE | 2020-09-22 10:00 | NUR ---
Given education to patient sign and symptoms of stroke:abnormal balance, eyes, arm, speech, and treble headache call 911 or ask help some one immediately. pPa Addendum: 09/22/20 at 1354 by MACEY HURT RN Error
--- NOTE | 2020-09-22 10:05 | NUR ---
Pediatric Allergist note: immigration services officer consult requested for stroke. Patient is a 50-year-old, male. Per chart, patient was brought in by ambulance from home on 09/22/20 for stroke. SW attempted to meet with the patient but was unable to arouse as the patient was lethargic. SS will follow up with the patient at a later time.
--- NOTE | 2020-09-22 11:57 | NUR ---
Cement Finisher Helper Consult: nursing services manager consult requested for stroke. Per chart, patient was brought to the hospital from home on 09/22/20 for stroke. Patient is a 50-year-old, male. SW met with the patient in his hospital room on the med-surgical unit. Patient was alert and oriented x4. Patient was resting and watching television. Patient is currently living alone at [address], [place] [address]; [phone]. SW asked the patient if he has a history of stroke and patient stated that this was his first stroke. SW discussed social support with the patient and patient stated that he has some support from his friends and his case fitter, Agatha, . Patient verbalized that he is independent with his ADLs. SW asked the patient about any sources of income and the patient stated that he receives income from Social Security. Patient stated that he has a history of Depression and is currently taking Abilify. Patient denies hallucinations or delusions. Patient denies any current suicidal or homicidal ideations. SW administered the PHQ-9 assessment. Patient scored 0 on the PHQ-9. SW provided informational material on stroke, Empowerment After Stroke. Patient accepted the packet, and thanked SW for the resource. Discharge plans discussed with the patient, and patient stated he will return to his prior living arrangements at home. Transportation was discussed and patient stated that he will arrange for a taxi to take him home. PLAN: Patient stated he will return to his prior living arrangements at home. No further SS interventions at this time, however SW will remain available as needed.
[2020-09-22] MEDS: BLOOD SUGAR DIAGNOSTIC 1 EACH STRIP IN SCH ×2 (12:00→17:41)
--- NOTE | 2020-09-22 12:00 | NUR ---
Patient done EKG and MD aware of EKG result. Patient denies chest pain or discomfort.
[2020-09-22 16:00] VITALS: BP 112/60
--- NOTE | 2020-09-22 18:23 | NUR ---
RN CLOSING NOTE PATIENT IN BED RESTING, REMAINS AO X 4. SKIN IS WARM TO TOUCH, KEEP CLEAN/DRY, INTACT IV SITE. COLLECTED URINE AND SENT LAB. RESPIRATORY EVEN AND UNLABORED ON ROOM AIR. KEPT ELEVATED HOB FOR ENSURE AIRWAY AND ASPIRATION PRECAUTION, ALSO LOWEST BED POSITION FOR SAFETY. CALL LIGHT WITHIN REACH, WILL ENDORSE PHYSICIAN PRACTICE MANAGER.
[2020-09-22 19:01] LABS: BILIRUBIN,URINE NEGATIVE (NEGATIVE); COLOR,URINE DARK YELLOW (YELLOW); LEUKOCYTE ESTERASE ,URINE NEGATIVE (NEGATIVE); NITRITE, URINE NEGATIVE (NEGATIVE); PH,URINE 5.5 (5.0-8.0); PROTEIN,URINE >=300 mg/dl (NEGATIVE); UGLUCOSE NEGATIVE (NEGATIVE); UROBILINOGEN,URINE 0.2 EU/dL (0.2)
[2020-09-22 19:05] LABS: CREATININE, URINE 383.3 MG/DL (30.0-125.0); URINE TOTAL PROTEIN 251.1 mg/dL (0-11.9)
[2020-09-22 19:24] LABS: BACTERIA,URINE Few /HPF (None Seen); RBC,URINE 0-2 /HPF (0-2); SQUAMOUS EPITHELIAL CELL,UR None Seen /HPF (None Seen); URINE AMORPHOUS URATE Many /HPF (None Seen); WBC,URINE 0-2 /HPF (0-3)
[2020-09-22 20:00] VITALS: BP 124/93
[2020-09-22 20:08] LABS: EOSINOPHIL,URINE None Seen
--- NOTE | 2020-09-22 20:13 | NUR ---
CONTACT CLERK OPENING NOTES PATIENT WAS SEEN SLEEPING IN BED. PATIENT IS ALERT AND ORIENTED X4.PATIENT IS ON ROOM AIR WITH NO RESPIRATORY DISTRESS NOTED. PATIENT HAS AN IV ACCESS ON HIS LEFT AC G#18 WHICH IS INTACT, PATENT, AND FLUSHING WELL. SAFETY PRECAUTIONS IN PLACE: BED LOCKED, SIDE RAILS UP, AND CALL LIGHT WITHIN REACH OF THE PATIENT. WILL CONTINUE TO MONITOR THE PATIENT.
[2020-09-22] MEDS ORDERED: ENOXAPARIN SODIUM 40 MG/0.4 ML DISP.SYRIN SQ SCH (21:00)
[2020-09-22] MEDS ORDERED: ATORVASTATIN 10 MG TABLET PO SCH (22:00)
[2020-09-23] VITALS: BP 128/86
--- NOTE | 2020-09-23 00:37 | NUR ---
REGIONAL PROGRAM MANAGER NOTES PATIENT'S BLOOD SUGAR IS CURRENTLY 107 MG/DL. NO INSULIN WAS GIVEN. WILL CONTINUE TO MONITOR THE PATIENT.
[2020-09-23] MEDS: BLOOD SUGAR DIAGNOSTIC 1 EACH STRIP IN SCH ×3 (00:42→11:59)
[2020-09-23] MEDS: IV NS 0.9% 1,000 ML IV PRN (01:57)
[2020-09-23 04:00] VITALS: BP 129/76
--- NOTE | 2020-09-23 05:38 | NUR ---
EXTENSION DIVISION DIRECTOR NOTES PATIENT'S BLOOD SUGAR IS CURRENTLY 90 MG/DL. NO INSULIN WAS GIVEN. WILL CONTINUE TO MONITOR THE PATIENT.
[2020-09-23 06:41] LABS: BASOPHILS # (AUTO) 0.1 /CMM (0.0-0.2); BASOPHILS % (AUTO) 0.7 % (0.0-2.0); EOSINOPHILS % (AUTO) 1.7 % (0.0-6.0); HEMATOCRIT 39 % (39-51); HEMOGLOBIN 13.1 g/dL (13.5-17.5); LYMPHOCYTES # (AUTO) 2.4 /CMM (0.8-4.8); LYMPHOCYTES % (AUTO) 25.8 % (20.0-44.0); MEAN CORPUSCULAR HGB CONC 34 g/dl (31.0-36.0); MEAN CORPUSCULAR VOLUME 91 fL (80-96); MONOCYTES # (AUTO) 0.6 /CMM (0.1-1.30); MONOCYTES % (AUTO) 6.8 % (2.0-12.0); NEUTROPHILS # (AUTO) 6.2 /CMM (1.8-8.9); PLATELET COUNT (AUTO) 174 /CMM (150-450); RED BLOOD CELL COUNT(AUTO) 4.31 MIL/uL (4.5-6.0); WHITE BLOOD COUNT (AUTO) 9.5 K/uL (4.3-11.0)
[2020-09-23 07:04] LABS: CALCIUM, SERUM 8.4 mg/dL (8.5-10.1); CREATININE 1.3 mg/dL (0.6-1.3); PHOSPHORUS 3.4 mg/dL (2.5-4.9); POTASSIUM 4.4 mmol/L (3.5-5.1)
--- NOTE | 2020-09-23 07:05 | NUR ---
CABLE MAKER CLOSING NOTES PATIENT WAS SEEN AWAKE LYING IN BED. PATIENT IS ALERT AND ORIENTED X4.PATIENT IS ON ROOM AIR WITH NO RESPIRATORY DISTRESS NOTED. PATIENT HAS AN IV ACCESS ON HIS LEFT AC G#18 WHICH IS CURRENTLY RUNNING NS AT 75 ML/HOUR. SAFETY PRECAUTIONS IN PLACE: BED LOCKED, BED ALARM ON, SIDE RAILS UP X3, AND CALL LIGHT WITHIN REACH OF THE PATIENT. WILL ENDORSE CARE TO DAY SHIFT NURSE.
--- NOTE | 2020-09-23 08:00 | NUR ---
RN OPENING NOTE RECEIVED PATIENT IN BED, AWAKE AND ORIENTED X 4, CLEAR SPEECH, ABLE TO RESPONDS ALL STIMULI. NO DISTRESS OBSERVED AT THIS TIME. SKIN IS WARM TO TOUCH, KEEP CLEAN/DRY, INTACT IV SITE. RESPIRATORY EVEN AND UNLABORED ON ROOM AIR. KEPT ELEVATED HOB FOR ENSURE AIRWAY AND ASPIRATION PRECAUTION, ALSO LOWEST BED POSITION. CALL LIGHT WITHIN REACH, WILL CONTINUE TO MONITOR.
[2020-09-23] MEDS: ASPIRIN 81 MG TAB.CHEW PO SCH (08:23)
[2020-09-23] MEDS ORDERED: ASPI-1169 PO (09:57)
--- NOTE | 2020-09-23 12:50 | NUR ---
GIVEN DISCHARGE INSTRUCTION INCLUDE NEW MEDICATION, AND SIDE EFFECTS. PATIENT REFUSED SIGN ON DISCHARGE FORM. IN MEDICALLY STABLE CONDITION.
== END 2020-09-23 13:30 | disposition home or self-care (01) | DRG 47 ==
LOC: ER 00:45 → TELE 05:37 → MED 09-23 10:17
PROVIDERS: ADMIT Internal Medicine; ATTEND Internal Medicine
DX: G45.9 Transient cerebral ischemic attack, unspecified (principal); N17.0 Acute kidney failure with tubular necrosis; I27.20 Pulmonary hypertension, unspecified; E44.1 Mild protein-calorie malnutrition; E87.5 Hyperkalemia; E88.09 Other disorders of plasma-protein metabolism, not elsewhere classified; I11.0 Hypertensive heart disease with heart failure; I50.22 Chronic systolic (congestive) heart failure; F20.9 Schizophrenia, unspecified; F32.9 Major depressive disorder, single episode, unspecified; E11.9 Type 2 diabetes mellitus without complications; E78.5 Hyperlipidemia, unspecified; F15.10 Other stimulant abuse, uncomplicated; R53.1 Weakness; Z20.822 Contact with and (suspected) exposure to COVID-19; Z68.30 Body mass index [BMI] 30.0-30.9, adult; R29.703 NIHSS score 3; R40.2362 Coma scale, best motor response, obeys commands, at arrival to emergency department; R40.2142 Coma scale, eyes open, spontaneous, at arrival to emergency department; R40.2252 Coma scale, best verbal response, oriented, at arrival to emergency department; R47.81 Slurred speech
CPT/HCPCS: 36415; 70450-TC; 71045-TC; 80048-TC; 80053-TC; 80061-TC; 80076-TC; 81001; 82140-TC; 82570-TC; 82962-TC; 83735-TC; 83880; 84100-TC; 84155-TC; 84300-TC; 84443-TC; 84484-TC; 85025-TC; 85652-TC; 85730-TC; 87081-TC; 92507-TC; 92521; 92526; 92611-TC; 93970-TC; 97112-TC; 97116-TC; 97530-TC; C9803; G0378; G0480; J1650; J7030

== ENCOUNTER 2022-08-21 06:06 | Inpatient (IN) | payer OTHER ==
[~2022-08-21] VITALS: Ht 170.2 cm; Wt 81.6 kg
[~2022-08-21 06:06] MED LIST changes: +ASPI-1169 PO; +FURO-144 PO; -FURO40TA5 PO
--- NOTE | 2022-08-21 06:20 | NUR ---
MAGDA FROM HOME COMPLAINING OF SLURRED SPEECH, LKW 4 HOURS AGO. HX CVA AND CHF. PATIENT IS AAOX4, ABLE TO MAKE NEEDS KNOWN. WAS ABLE TO AMBULATE FROM GURNEY TO BED. NO MOTOR DEFICIT. PLACED COMFORTABLY IN BED. ATTACHED TO MONITOR. VITALS CHECKED.
--- NOTE | 2022-08-21 06:28 | NUR ---
CODE STROKE CALLED.
--- NOTE | 2022-08-21 06:30 | NUR ---
IV MARKY G20 INSERTED ON RIGHT AC. BLOOD DRAWN AND SENT TO LAB
[2022-08-21] MEDS ORDERED: IOHEXOL-350 100 ML VIAL IV ONE (06:32)
[2022-08-21] MEDS ORDERED: IV NS 0.9% 250 ML IV ONE (06:32)
[2022-08-21] MEDS ORDERED: CT SWABBABLE VALVE TRANS SET 1 EA INFUS.SET MC ONE (06:32)
[2022-08-21 06:37] LABS: BASOPHILS # (AUTO) 0.1 K/uL (0.0-0.2); BASOPHILS % (AUTO) 1.5 % (0.0-2.0); EOSINOPHILS % (AUTO) 1.8 % (0.0-6.0); HEMATOCRIT 47 % (39-51); HEMOGLOBIN 15.2 g/dL (13.5-17.5); LYMPHOCYTES # (AUTO) 2.1 K/uL (0.8-4.8); LYMPHOCYTES % (AUTO) 23.8 % (20.0-44.0); MEAN CORPUSCULAR HGB CONC 33 g/dl (31.0-36.0); MEAN CORPUSCULAR VOLUME 91 fL (80-96); MONOCYTES # (AUTO) 0.7 K/uL (0.1-1.30); MONOCYTES % (AUTO) 7.6 % (2.0-12.0); NEUTROPHILS # (AUTO) 5.6 K/uL (1.8-8.9); NEUTROPHILS % (AUTO) 65.3 % (43.0-81.0); PLATELET COUNT (AUTO) 255 K/uL (150-450); RED BLOOD CELL COUNT(AUTO) 5.16 MIL/uL (4.5-6.0); WHITE BLOOD COUNT (AUTO) 8.6 K/uL (4.3-11.0)
[2022-08-21 06:45] LABS: CALCIUM, SERUM 9.4 mg/dL (8.5-10.1); CARBON DIOXIDE 28 mmol/L (21-32); CHLORIDE 103 mmol/L (98-107); CREATININE 1.1 mg/dL (0.6-1.3); GLUCOSE 99 mg/dL (74-106); POTASSIUM 4.6 mmol/L (3.5-5.1); SODIUM SERUM 138 mmol/L (136-145); UREA NITROGEN, BLOOD 19 mg/dL (7-18)
--- NOTE | 2022-08-21 06:46 | NUR ---
TELENEURO WITH DR THOMAS
--- NOTE | 2022-08-21 06:47 | NUR ---
NIHSS SCORE OF 5, DR THAKUR MADE AWARE
[2022-08-21 06:51] LABS: ALANINE AMINOTRANSFERASE 31 U/L (12-78); ALBUMIN 3.6 g/dL (3.4-5.0); ALKALINE PHOSPHATASE 56 U/L (46-116); ASPARTATE AMINOTRANSFERASE 30 U/L (15-37); BILIRUBIN,DIRECT 0.2 mg/dL (0.0-0.2); BILIRUBIN,TOTAL 0.7 mg/dL (0.2-1.0); TOTAL PROTEIN, SERUM 7.4 g/dL (6.4-8.2)
--- NOTE | 2022-08-21 07:09 | NUR ---
IV MARKY G18 INSERTED ON LEFT AC.
--- NOTE | 2022-08-21 07:17 | NUR ---
REPORT GIVEN ENEIDA HICKS
--- NOTE | 2022-08-21 07:36 | NUR ---
CLINICAL REPORT GIVEN TO AMI ROMERO LOGISTIC MANAGER. [phone] OPTION #2
--- NOTE | 2022-08-21 08:17 | NUR ---
[facility] CALLED FOLDER MACHINE ADJUSTER PAGED.
[2022-08-21] MEDS ORDERED: ASPIRIN 325 MG TABLET PO ONE (08:30)
--- NOTE | 2022-08-21 08:45 | NUR ---
GOT BED 116-1 ADMITTING INFORMED.
[2022-08-21] MEDS ORDERED: ASPIRIN EC 325 MG TABLET.DR PO ONE (08:49)
--- NOTE | 2022-08-21 08:52 | NUR ---
REPORT GIVEN TO GRETA MONIQUE.
--- NOTE | 2022-08-21 09:02 | NUR ---
URINE SAMPE OBTAINED. SENT TO LAB
[2022-08-21 09:30] VITALS: BP 106/77
--- NOTE | 2022-08-21 09:50 | NUR ---
moved to inpatient room safely per acls protocol .
--- NOTE | 2022-08-21 09:55 | NUR ---
CENTRIFUGAL DRIER OPERATOR NOTE PT ALERT AND ORIENTED X4. ON ROOM AIR. PT NOTED TO HAVE SMALL LEFT SIDED DROPPING. PT HAS LEFT IV AND RIGHT IV ACCESS. IV INTACT, PATENT AND FLUSHES WELL. ALL SAFETY MEASURES IN PLACE. CALL LIGHT WITHIN REACH. BED LOCKED AT LOWEST POSITION.SIDE RAILS UP X2. BED ALARM ON
[2022-08-21] MEDS ORDERED: LISI20TA30 PO (09:58)
--- NOTE | 2022-08-21 10:46 | NUR ---
RN NOTE NOTIFIED DR. GARVIN BP 106/77 AND IF OKAY TO GIVE LISINOPRIL. OKAY TO GIVE. PER HOLD LISINOPRIL IF SBP <100
[2022-08-21] MEDS: FUROSEMIDE 40 MG TABLET PO SCH (10:58)
[2022-08-21] MEDS: LISINOPRIL (20MG) 20 MG TABLET PO SCH (10:58)
[2022-08-21] MEDS ORDERED: ONDANSETRON HCL/PF 4 MG/2 ML VIAL IVP PRN (11:00)
[2022-08-21] MEDS ORDERED: Z GUARD REMEDY 4 OZ OINT TP PRN (11:00)
[2022-08-21] MEDS ORDERED: MAGNESIUM HYDROXIDE 30 ML UDC PO PRN (11:00)
[2022-08-21] MEDS ORDERED: MAG HYDROX/AL HYDROX/SIMETH 30 ML UDC PO PRN (11:00)
[2022-08-21] MEDS ORDERED: ACETAMINOPHEN 325 MG TABLET PO PRN (11:00)
[2022-08-21] MEDS: ENOXAPARIN SODIUM 40 MG/0.4 ML DISP.SYRIN SQ SCH (12:57)
[2022-08-21 13:00] VITALS: BP 103/70
--- NOTE | 2022-08-21 16:06 | NUR ---
RN NOTE PT REFUSES TO BE CHANGED TO HOSPITAL GOWN AT THIS TIME. SAID TRY AGAIN LATER
[2022-08-21 17:00] VITALS: BP 101/77
--- NOTE | 2022-08-21 19:14 | NUR ---
CHIEF DISPATCHER CLOSING NOTE PT ALERT AND ORIENTED X4. PT ON TELE MONITOR SINUS RHYTHM ON ROOM AIR TOLERATING AT 97%. PT NOTED TO HAVE SMALL LEFT SIDED DROPPING. NO COMPLAINTS OF PAIN OR DISCOMFORT NOTED AT THIS TIME. PT HAS LEFT IV AND RIGHT IV ACCESS. IV INTACT, PATENT AND FLUSHES WELL. PT REFUSES SKIN ASSESSMENT AT THIS TIME AND SAID TRY AGAIN LATER. ALL SAFETY MEASURES IN PLACE. CALL LIGHT WITHIN REACH. BED LOCKED AT LOWEST POSITION.SIDE RAILS UP X2. BED ALARM ON. PROVIDED PT WITH STROKE EDUCATION MATERAL. WENT OVER STROKE EDUCATION WITH PT. PT VERBALIZED UNDERSTANDING. ENDORSED TO THEATRE INSTRUCTOR RN FOR CONTUITY OF CARE
--- NOTE | 2022-08-21 20:00 | NUR ---
HOME CARE GIVER NOTE PT IN BED AWAKE. HAPPY. A/O X 4, NO SOB, NO DISTRESS OR DISCOMFORT NOTED. DENIES PAIN. ON TELE SR WITH BBB AND INVERTED T WAVE HR 91. LAC 18 G AND RFA #20 G SL INTACT AND PATENT. SIDE RAILS UP X 2 AND CALL LIGHT WITHIN REACH. VSS. CONTINUE TO MONITOR HIM.
[2022-08-21 21:00] VITALS: BP 112/76
[2022-08-21] MEDS ORDERED: ZOLPIDEM TARTRATE 5 MG TABLET PO PRN (22:00)
[2022-08-21] MEDS ORDERED: ATORVASTATIN 10 MG TABLET PO SCH (22:00)
[2022-08-22 01:00] VITALS: BP 100/80
--- NOTE | 2022-08-22 03:29 | NUR ---
STAPLE PROCESSING MACHINE OPERATOR NOTE PT WANTS TO REMOVE THE BIPAP, N/C O2 APPLIED 5L BUT O2 SAT DROPPED TO 85%. SIMPLE MASK APPLIED 10L O2, SAT CAME UP TO 94%. KEPT HOB ELEVATED.
[2022-08-22 05:00] VITALS: BP 105/78
[2022-08-22 05:58] LABS: BASOPHILS # (AUTO) 0.1 K/uL (0.0-0.2); BASOPHILS % (AUTO) 1.8 % (0.0-2.0); EOSINOPHILS % (AUTO) 3.2 % (0.0-6.0); HEMATOCRIT 49 % (39-51); HEMOGLOBIN 15.9 g/dL (13.5-17.5); LYMPHOCYTES # (AUTO) 1.9 K/uL (0.8-4.8); LYMPHOCYTES % (AUTO) 30.2 % (20.0-44.0); MEAN CORPUSCULAR HGB CONC 33 g/dl (31.0-36.0); MEAN CORPUSCULAR VOLUME 90 fL (80-96); MONOCYTES # (AUTO) 0.5 K/uL (0.1-1.30); MONOCYTES % (AUTO) 7.7 % (2.0-12.0); NEUTROPHILS # (AUTO) 3.5 K/uL (1.8-8.9); NEUTROPHILS % (AUTO) 57.1 % (43.0-81.0); PLATELET COUNT (AUTO) 235 K/uL (150-450); RED BLOOD CELL COUNT(AUTO) 5.41 MIL/uL (4.5-6.0); WHITE BLOOD COUNT (AUTO) 6.2 K/uL (4.3-11.0)
[2022-08-22 06:50] LABS: CALCIUM, SERUM 9.8 mg/dL (8.5-10.1); CREATININE 1.1 mg/dL (0.6-1.3); MAGNESIUM 2.2 mg/dL (1.8-2.4); PHOSPHORUS 4.8 mg/dL (2.5-4.9); POTASSIUM 4.4 mmol/L (3.5-5.1)
--- NOTE | 2022-08-22 07:00 | NUR ---
ENEIDA OPENING NOTE RECEIVED PATIENT IN BED, SLEEPIMNG Addendum: 08/22/22 at 0852 by NANCI NG RN ERROR
--- NOTE | 2022-08-22 07:00 | NUR ---
RN OPENING NOTE RECEIVED PATIENT IN BED RESTING, ALERT AND ORIENTED X4 ON ROOM AIR 02 SAT 100% CONTINENT, AMBULATORY. IV SITE ON LAC JESSI 18, INTACT AND FLUSHING WELL. BED IN LOWEST AND LOCKED POSITION, CALL LIGHT WITHIN REACH, WILL CONTINUE TO MONITOR
[2022-08-22] MEDS: FUROSEMIDE 40 MG TABLET PO SCH (08:24)
[2022-08-22] MEDS: LISINOPRIL (20MG) 20 MG TABLET PO SCH (08:24)
[2022-08-22] MEDS: ENOXAPARIN SODIUM 40 MG/0.4 ML DISP.SYRIN SQ SCH (08:25)
[2022-08-22 09:00] VITALS: BP 113/91
[2022-08-22] MEDS ORDERED: ASPIRIN 81 MG TAB.CHEW PO SCH (09:00)
--- NOTE | 2022-08-22 09:45 | NUR ---
RN NOTE PATIENT WAS SEEN AND EVALUATED BY PT, PATIENT WAS ABLE TO WALK WITH NO ASSISTANCE MD MADE AWARE WITH ORDERS TO DC SCD
[2022-08-22] MEDS ORDERED: SACU1TAB7 PO (10:15)
[2022-08-22] MEDS ORDERED: ATOR10TA PO (10:15)
[2022-08-22] MEDS ORDERED: ASPI-1169 PO (10:15)
[2022-08-22 13:00] VITALS: BP 115/77
--- NOTE | 2022-08-22 14:12 | NUR ---
RN NOTE PATIENT WAS DISCHARGED TO HOME, BY DOCTOR JAY SANCHEZ. DISCHARGE INSTRUCTIONS AND PAPERWORK GIVEN TO PATIENT, PATIENT VERBALIZED UNDERSTANDINGS. IV ACCESS TAKEN OUT. TAXI VOUCHER GIVEN TO PATIENT, AWAITING HOME HEALTH TRAVEL PT IN MAIN LOBBY.
== END 2022-08-22 13:58 | disposition home or self-care (01) | DRG 47 ==
LOC: ER 06:14 → TELE1 09:03
PROVIDERS: ADMIT Nurse Practitioner Acute Care; ATTEND Nurse Practitioner Acute Care
DX: G45.9 Transient cerebral ischemic attack, unspecified (principal); I50.23 Acute on chronic systolic (congestive) heart failure; I27.20 Pulmonary hypertension, unspecified; I42.7 Cardiomyopathy due to drug and external agent; I50.20 Unspecified systolic (congestive) heart failure; T43.651A Poisoning by methamphetamines accidental (unintentional), initial encounter; Y92.89 Other specified places as the place of occurrence of the external cause; F15.10 Other stimulant abuse, uncomplicated; I11.0 Hypertensive heart disease with heart failure; Z79.82 Long term (current) use of aspirin; Z79.899 Other long term (current) drug therapy; F20.9 Schizophrenia, unspecified; F17.210 Nicotine dependence, cigarettes, uncomplicated; E78.5 Hyperlipidemia, unspecified; F32.A Depression, unspecified; R29.703 NIHSS score 3; I69.892 Facial weakness following other cerebrovascular disease; R53.1 Weakness
CPT/HCPCS: 36415; 70450-TC; 70496-TC; 71045-TC; 80048-TC; 80061-TC; 80076-TC; 82962-TC; 83735-TC; 83880; 84100-TC; 84484-TC; 85025-TC; 85730-TC; 87081-TC; 92526; 92611-TC; 93307-TC; 97116-TC; 97530-TC; C9803; G0378; J1650; J7050; Q9967

== ENCOUNTER 2022-10-12 19:25 | Emergency (ER) | payer OTHER ==
[~2022-10-12] VITALS: Ht 170.2 cm; Wt 89.4 kg
[~2022-10-12 19:25] MED LIST changes: +ATOR10TA PO; -CARV3.12 PO; +LISI20TA30 PO; -METO-357 PO; +SACU1TAB7 PO
--- NOTE | 2022-10-12 19:43 | NUR ---
COVID SWAB DONE AND SENT TO LAB
--- NOTE | 2022-10-12 20:30 | NUR ---
MULTIPLE CUT OFF SAW OPERATOR AT BEDSIDE
[2022-10-12] MEDS ORDERED: SULF1TAB48 PO (21:21)
[2022-10-12] MEDS ORDERED: SACU1TAB7 PO (21:34)
[2022-10-12] MEDS ORDERED: ASPI-1169 PO (21:34)
[2022-10-12] MEDS ORDERED: ATOR10TA PO (21:34)
[2022-10-12] MEDS ORDERED: FURO-144 PO (21:34)
[2022-10-12] MEDS ORDERED: LISI20TA30 PO (21:34)
--- NOTE | 2022-10-12 21:46 | NUR ---
Patient discharged to home in stable condition. Written and verbal after care instructions given. Patient verbalizes understanding of instruction.
[2022-10-12 21:50] VITALS: BP 129/82
== END 2022-10-12 21:50 | disposition home or self-care (01) ==
LOC: ER 19:32
DX: L03.115 Cellulitis of right lower limb (principal); I11.0 Hypertensive heart disease with heart failure; I50.9 Heart failure, unspecified; E78.5 Hyperlipidemia, unspecified; F32.A Depression, unspecified; F20.9 Schizophrenia, unspecified; F17.200 Nicotine dependence, unspecified, uncomplicated; Z60.2 Problems related to living alone; Z79.899 Other long term (current) drug therapy; Z20.822 Contact with and (suspected) exposure to COVID-19
CPT/HCPCS: 99284; 93971; 87426; C9803

== ENCOUNTER 2023-04-16 06:11 | Emergency (ER) | payer OTHER ==
[~2023-04-16] VITALS: Ht 167.6 cm; Wt 88.9 kg
[~2023-04-16 06:11] MED LIST changes: +SULF1TAB48 PO
[2023-04-16] MEDS ORDERED: KETOROLAC TROMETHAMINE 15 MG/ML VIAL IV ONE (06:30)
[2023-04-16] MEDS ORDERED: KETOROLAC TROMETHAMINE 15 MG/ML VIAL ONE (06:30)
[2023-04-16 06:34] LABS: BASOPHILS # (AUTO) 0.1 K/uL (0.0-0.2); BASOPHILS % (AUTO) 0.8 % (0.0-2.0); EOSINOPHILS # (AUTO) 0.2 K/uL (0.0-0.7); EOSINOPHILS % (AUTO) 1.3 % (0.0-6.0); HEMATOCRIT 41 % (39-51); HEMOGLOBIN 13.1 g/dL (13.5-17.5); LYMPHOCYTES # (AUTO) 1.7 K/uL (0.8-4.8); LYMPHOCYTES % (AUTO) 14.7 % (20.0-44.0); MEAN CORPUSCULAR HEMOGLOBIN 29 PG (26.0-33.0); MEAN CORPUSCULAR HGB CONC 32 g/dl (31.0-36.0); MEAN CORPUSCULAR VOLUME 90 fL (80-96); MONOCYTES # (AUTO) 0.9 K/uL (0.1-1.30); NEUTROPHILS # (AUTO) 8.8 K/uL (1.8-8.9); NEUTROPHILS % (AUTO) 75.2 % (43.0-81.0); PLATELET COUNT (AUTO) 229 K/uL (150-450); RED BLOOD CELL COUNT(AUTO) 4.49 MIL/uL (4.5-6.0); RED CELL DISTRIBUTION WIDTH 14.6 % (11.5-15.0); WHITE BLOOD COUNT (AUTO) 11.7 K/uL (4.3-11.0)
[2023-04-16 06:53] LABS: ALANINE AMINOTRANSFERASE 16 U/L (12-78); ALBUMIN 3.4 g/dL (3.4-5.0); ALKALINE PHOSPHATASE 78 U/L (46-116); ASPARTATE AMINOTRANSFERASE 21 U/L (15-37); BILIRUBIN,DIRECT 0.3 mg/dL (0.0-0.2); BILIRUBIN,TOTAL 1.2 mg/dL (0.2-1.0); CALCIUM, SERUM 9.4 mg/dL (8.5-10.1); CARBON DIOXIDE 28 mmol/L (21-32); CHLORIDE 99 mmol/L (98-107); CREATININE 1.1 mg/dL (0.6-1.3); GLUCOSE 118 mg/dL (74-106); LIPASE 33 U/L (16-77); POTASSIUM 4.1 mmol/L (3.5-5.1); SODIUM SERUM 135 mmol/L (136-145); UREA NITROGEN, BLOOD 15 mg/dL (7-18)
[2023-04-16 08:13] LABS: APPEARANCE,URINE CLEAR (CLEAR); BILIRUBIN,URINE NEGATIVE (NEGATIVE); BLOOD, URINE NEGATIVE Ery/uL (NEGATIVE); COLOR,URINE YELLOW (YELLOW); KETONES,URINE NEGATIVE (NEGATIVE); LEUKOCYTE ESTERASE ,URINE NEGATIVE (NEGATIVE); NITRITE, URINE NEGATIVE (NEGATIVE); PH,URINE 5.5 (5.0-8.0); PROTEIN,URINE NEGATIVE (NEGATIVE); UGLUCOSE NEGATIVE (NEGATIVE); UROBILINOGEN,URINE 0.2 EU/dL (0.2)
[2023-04-16] MEDS ORDERED: KETOROLAC TROMETHAMINE INJ 30 MG/ML VIAL ONE (08:27)
[2023-04-16] MEDS ORDERED: CIPROFLOXACIN HCL 500 MG TABLET ONE (08:27)
[2023-04-16] MEDS ORDERED: FURO-144 PO (08:28)
[2023-04-16] MEDS ORDERED: LISI20TA30 PO (08:28)
[2023-04-16] MEDS ORDERED: CIPR-262 PO (08:29)
[2023-04-16] MEDS ORDERED: CIPROFLOXACIN HCL 500 MG TABLET PO ONE (08:30)
[2023-04-16] MEDS ORDERED: KETOROLAC TROMETHAMINE INJ 30 MG/ML VIAL IV ONE (08:30)
[2023-04-16 09:24] VITALS: BP 168/79; TEMP 97.8; O2SAT 99
== END 2023-04-16 09:24 | disposition home or self-care (01) ==
LOC: ER 06:17
DX: N39.0 Urinary tract infection, site not specified (principal); I11.0 Hypertensive heart disease with heart failure; I50.9 Heart failure, unspecified; E78.5 Hyperlipidemia, unspecified; F32.A Depression, unspecified; F20.9 Schizophrenia, unspecified; Z60.2 Problems related to living alone
CPT/HCPCS: 99285; 74176; 96374; 71045; 93005; 96376; 85025; 80048; 87086; 83690; 80076; 81003; 36415; 84484; J1885 ×2

== ENCOUNTER 2023-07-14 17:23 | Inpatient (IN) | payer OTHER ==
[2023-07-14] VITALS: BP 131/100; TEMP 98.4; O2SAT 94
[~2023-07-14] VITALS: Ht 172.7 cm; Wt 100.2 kg
[~2023-07-14 17:23] MED LIST changes: +CIPR-262 PO
[2023-07-14] MEDS ORDERED: FUROSEMIDE 40 MG/4 ML VIAL ONE (17:39)
[2023-07-14 17:47] LABS: BASOPHILS # (AUTO) 0.1 K/uL (0.0-0.2); EOSINOPHILS # (AUTO) 0.2 K/uL (0.0-0.7); EOSINOPHILS % (AUTO) 1.9 % (0.0-6.0); HEMATOCRIT 44 % (39-51); HEMOGLOBIN 14.1 g/dL (13.5-17.5); LYMPHOCYTES # (AUTO) 1.4 K/uL (0.8-4.8); LYMPHOCYTES % (AUTO) 16.2 % (20.0-44.0); MEAN CORPUSCULAR HEMOGLOBIN 29 PG (26.0-33.0); MEAN CORPUSCULAR HGB CONC 32 g/dl (31.0-36.0); MEAN CORPUSCULAR VOLUME 88 fL (80-96); MONOCYTES # (AUTO) 0.7 K/uL (0.1-1.30); MONOCYTES % (AUTO) 7.5 % (2.0-12.0); NEUTROPHILS # (AUTO) 6.4 K/uL (1.8-8.9); NEUTROPHILS % (AUTO) 73.4 % (43.0-81.0); PLATELET COUNT (AUTO) 229 K/uL (150-450); RED BLOOD CELL COUNT(AUTO) 4.94 MIL/uL (4.5-6.0); RED CELL DISTRIBUTION WIDTH 16.5 % (11.5-15.0); WHITE BLOOD COUNT (AUTO) 8.7 K/uL (4.3-11.0)
[2023-07-14] MEDS: FUROSEMIDE 40 MG/4 ML VIAL IV ONE (17:47)
[2023-07-14 18:02] LABS: INR 1.24 (0.91-1.10); PARTIAL THROMBOPLASTIN TIME 28.3 SEC (24.3-34.3); PROTHROMBIN TIME 12.7 SECS (9.2-11.1)
[2023-07-14 18:10] LABS: ALANINE AMINOTRANSFERASE 26 U/L (12-78); ALBUMIN 3.1 g/dL (3.4-5.0); ALKALINE PHOSPHATASE 117 U/L (46-116); ASPARTATE AMINOTRANSFERASE 46 U/L (15-37); BILIRUBIN,DIRECT 0.5 mg/dL (0.0-0.2); BILIRUBIN,TOTAL 1.4 mg/dL (0.2-1.0); CALCIUM, SERUM 9.3 mg/dL (8.5-10.1); CARBON DIOXIDE 27 mmol/L (21-32); CHLORIDE 100 mmol/L (98-107); CREATININE 1.2 mg/dL (0.6-1.3); GLUCOSE 98 mg/dL (74-106); NT-PRO BNP 4711 pg/mL (0-125); POTASSIUM 3.7 mmol/L (3.5-5.1); SODIUM SERUM 134 mmol/L (136-145); TOTAL PROTEIN, SERUM 7.9 g/dL (6.4-8.2); UREA NITROGEN, BLOOD 18 mg/dL (7-18)
[2023-07-14] MEDS ORDERED: ATOR20TA PO (19:07)
[2023-07-14] MEDS ORDERED: ASPI-1169 PO (19:07)
[2023-07-14] MEDS ORDERED: FURO-144 PO (19:07)
[2023-07-14] MEDS: ENOXAPARIN SODIUM 100 MG/ML DISP.SYRIN SQ ONE (19:08)
[2023-07-14] MEDS ORDERED: ONDANSETRON HCL/PF 4 MG/2 ML VIAL IVP PRN (20:30)
[2023-07-14] MEDS ORDERED: MAG HYDROX/AL HYDROX/SIMETH 30 ML UDC PO PRN (20:30)
[2023-07-14] MEDS ORDERED: HYDROCODONE/APAP 5/325MG TABLET PO PRN (20:30)
[2023-07-14] MEDS ORDERED: Z GUARD REMEDY 4 OZ OINT TP PRN (20:30)
[2023-07-14] MEDS ORDERED: ACETAMINOPHEN 325 MG TABLET PO PRN (20:30)
[2023-07-14] MEDS ORDERED: hydrALAZINE HCL IV 20 MG VIAL IV PRN (20:30)
[2023-07-14] MEDS ORDERED: MAGNESIUM HYDROXIDE 30 ML UDC PO PRN (20:30)
[2023-07-14 20:43] VITALS: BP 131/100; TEMP 98.4; O2SAT 94
[2023-07-15] VITALS (10 sets, daily range): BP systolic 115–148; BP diastolic 81–106; TEMP 96.8–98.2; O2SAT 94–99
[2023-07-15] MEDS: CODEINE/PROMETHAZINE HCL 5 ML UDC PO PRN (00:16)
[2023-07-15 06:24] LABS: BASOPHILS # (AUTO) 0.1 K/uL (0.0-0.2); BASOPHILS % (AUTO) 0.9 % (0.0-2.0); EOSINOPHILS # (AUTO) 0.1 K/uL (0.0-0.7); EOSINOPHILS % (AUTO) 1.4 % (0.0-6.0); HEMATOCRIT 39 % (39-51); HEMOGLOBIN 12.7 g/dL (13.5-17.5); LYMPHOCYTES # (AUTO) 1.6 K/uL (0.8-4.8); MEAN CORPUSCULAR HEMOGLOBIN 29 PG (26.0-33.0); MEAN CORPUSCULAR HGB CONC 33 g/dl (31.0-36.0); MEAN CORPUSCULAR VOLUME 89 fL (80-96); MONOCYTES # (AUTO) 0.7 K/uL (0.1-1.30); MONOCYTES % (AUTO) 8.8 % (2.0-12.0); NEUTROPHILS # (AUTO) 5.5 K/uL (1.8-8.9); NEUTROPHILS % (AUTO) 68.9 % (43.0-81.0); PLATELET COUNT (AUTO) 223 K/uL (150-450); RED BLOOD CELL COUNT(AUTO) 4.33 MIL/uL (4.5-6.0); RED CELL DISTRIBUTION WIDTH 16.9 % (11.5-15.0)
[2023-07-15 06:57] LABS: CALCIUM, SERUM 9.5 mg/dL (8.5-10.1); CREATININE 1.4 mg/dL (0.6-1.3); MAGNESIUM 1.8 mg/dL (1.8-2.4); PHOSPHORUS 4.3 mg/dL (2.5-4.9); POTASSIUM 3.6 mmol/L (3.5-5.1)
[2023-07-15] MEDS: MORPHINE SULFATE INJ 2 MG/ML DISP.SYRIN IV PRN (07:00)
[2023-07-15 07:18] LABS: THYROID STIMULATING HORMONE 5.478 uIU/mL (0.358-3.74)
[2023-07-15] MEDS: PANTOPRAZOLE 40 MG TABLET.DR PO SCH (08:07)
[2023-07-15] MEDS: ENOXAPARIN SODIUM 100 MG/ML DISP.SYRIN SQ SCH (08:23)
[2023-07-15] MEDS: ASPIRIN 81 MG TAB.CHEW PO SCH (08:28)
[2023-07-15] MEDS: FUROSEMIDE 40 MG/4 ML VIAL IV SCH ×2 (08:29→10:10)
[2023-07-15] MEDS: POTASSIUM CHLORIDE 20 MEQ TAB.PRT.SR PO SCH (10:11)
[2023-07-15] MEDS: methylPREDNISolone SOD SUCC 125 MG/2ML VIAL IV SCH (12:28)
[2023-07-15] MEDS: ALBUTEROL FS 2.5 MG/0.5 ML VIAL.NEB NEB ONE (12:30)
[2023-07-15] MEDS: IPRATROPIUM NEB FS 0.5 MG/2.5 ML AMPUL.NEB NEB ONE (12:30)
[2023-07-15 13:14] LABS: ABG BASE EXCESS 0.9 mmol/L; ABG OXYGEN SATURATION 92.2 % (92.0-98.5); ABG PCO2 28.9 mmHg (35.0-45.0); ABG PH 7.517 (7.350-7.450); ABG PO2 60.6 mmHg (75.0-100.0); ABG TOTAL HEMOGLOBIN 12.7 G/dL (13.5-18.0); AaDO2 54.5 mmHg; COHb 0.7 % (0.5-1.5); O2Hb 91.6 % (94.0-97.0); SITE, ABG Right Radial; VENT MODE, BG ROOM AIR
[2023-07-15 13:25] LABS: APPEARANCE,URINE CLEAR (CLEAR); BILIRUBIN,URINE NEGATIVE (NEGATIVE); BLOOD, URINE TRACE-INTA Ery/uL (NEGATIVE); COLOR,URINE YELLOW (YELLOW); KETONES,URINE NEGATIVE (NEGATIVE); LEUKOCYTE ESTERASE ,URINE NEGATIVE (NEGATIVE); NITRITE, URINE NEGATIVE (NEGATIVE); PROTEIN,URINE NEGATIVE (NEGATIVE); UGLUCOSE NEGATIVE (NEGATIVE)
[2023-07-15 13:28] LABS: ADD URINE CULTURE NO; BACTERIA,URINE None seen /HPF (None Seen); RBC,URINE 0-2 /HPF (0-2); SQUAMOUS EPITHELIAL CELL,UR Few /HPF (None Seen); WBC,URINE 0-2 /HPF (0-3)
[2023-07-15 13:47] LABS: AMPHETAMINE, URINE NEGATIVE (NEGATIVE); BARBITURATE, URINE NEGATIVE (NEGATIVE); BENZODIAZEPINE, URINE NEGATIVE (NEGATIVE); CANNABINOID, URINE NEGATIVE (NEGATIVE); COCCAINE, URINE NEGATIVE (NEGATIVE); PHENCYCLIDINE SCREEN,URINE NEGATIVE (NEGATIVE)
[2023-07-15 13:48] LABS: OPIATE, URINE POSITIVE (NEGATIVE)
[2023-07-15] MEDS: IPRATROPIUM NEB FS 0.5 MG/2.5 ML AMPUL.NEB NEB SCH (14:10)
[2023-07-15] MEDS: ALBUTEROL FS 2.5 MG/3 ML VIAL.NEB NEB SCH (14:10)
[2023-07-15] MEDS: ATORVASTATIN 10 MG TABLET PO SCH (21:23)
[2023-07-16] VITALS (12 sets, daily range): BP systolic 95–148; BP diastolic 65–115; TEMP 97.7–98.6; O2SAT 92–98
[2023-07-16 07:30] LABS: BASOPHILS % (AUTO) 0.1 % (0.0-2.0); HEMATOCRIT 31 % (39-51); HEMOGLOBIN 9.9 g/dL (13.5-17.5); LYMPHOCYTES # (AUTO) 1.6 K/uL (0.8-4.8); LYMPHOCYTES % (AUTO) 9.7 % (20.0-44.0); MEAN CORPUSCULAR HEMOGLOBIN 30 PG (26.0-33.0); MEAN CORPUSCULAR HGB CONC 32 g/dl (31.0-36.0); MEAN CORPUSCULAR VOLUME 91 fL (80-96); MONOCYTES # (AUTO) 0.9 K/uL (0.1-1.30); MONOCYTES % (AUTO) 5.6 % (2.0-12.0); NEUTROPHILS # (AUTO) 14.3 K/uL (1.8-8.9); NEUTROPHILS % (AUTO) 84.6 % (43.0-81.0); PLATELET COUNT (AUTO) 236 K/uL (150-450); RED BLOOD CELL COUNT(AUTO) 3.35 MIL/uL (4.5-6.0); RED CELL DISTRIBUTION WIDTH 17.2 % (11.5-15.0); WHITE BLOOD COUNT (AUTO) 16.9 K/uL (4.3-11.0)
[2023-07-16 07:54] LABS: ALBUMIN 2.8 g/dL (3.4-5.0); BILIRUBIN,TOTAL 1.8 mg/dL (0.2-1.0); CALCIUM, SERUM 9.2 mg/dL (8.5-10.1); CREATININE 3.3 mg/dL (0.6-1.3); PHOSPHORUS 7.3 mg/dL (2.5-4.9); POTASSIUM 5.4 mmol/L (3.5-5.1); TOTAL PROTEIN, SERUM 7.3 g/dL (6.4-8.2)
[2023-07-16] MEDS: SODIUM POLYSTYRENE SULFONATE 15 G/60 ML BOTTLE PO ONE (10:42)
[2023-07-16 10:56] LABS: HEMATOCRIT 29 % (39-51); HEMOGLOBIN 9.5 g/dL (13.5-17.5); LYMPHOCYTES # (AUTO) 1.5 K/uL (0.8-4.8); LYMPHOCYTES % (AUTO) 8.8 % (20.0-44.0); MEAN CORPUSCULAR HEMOGLOBIN 29 PG (26.0-33.0); MEAN CORPUSCULAR HGB CONC 32 g/dl (31.0-36.0); MEAN CORPUSCULAR VOLUME 89 fL (80-96); MONOCYTES % (AUTO) 5.9 % (2.0-12.0); NEUTROPHILS # (AUTO) 14.3 K/uL (1.8-8.9); NEUTROPHILS % (AUTO) 85.3 % (43.0-81.0); PLATELET COUNT (AUTO) 254 K/uL (150-450); RED BLOOD CELL COUNT(AUTO) 3.29 MIL/uL (4.5-6.0); RED CELL DISTRIBUTION WIDTH 16.8 % (11.5-15.0); WHITE BLOOD COUNT (AUTO) 16.8 K/uL (4.3-11.0)
[2023-07-16] MEDS: ALBUMIN 25% 25 GM in PREMIX 1 EA IV SCH (11:16)
[2023-07-16 12:20] LABS: ALBUMIN 2.9 g/dL (3.4-5.0); BILIRUBIN,TOTAL 1.8 mg/dL (0.2-1.0); CALCIUM, SERUM 9.5 mg/dL (8.5-10.1); CREATININE 3.7 mg/dL (0.6-1.3); MAGNESIUM 1.9 mg/dL (1.8-2.4); PHOSPHORUS 7.6 mg/dL (2.5-4.9); POTASSIUM 5.2 mmol/L (3.5-5.1); TOTAL PROTEIN, SERUM 7.4 g/dL (6.4-8.2)
[2023-07-16] MEDS: PIPERACILLIN /TAZOBACTAM 2.25 G in IV D5W 50 ML IV SCH (13:11)
[2023-07-16 13:15] LABS: CALCIUM, SERUM 9.5 mg/dL (8.5-10.1); CREATININE 3.9 mg/dL (0.6-1.3); POTASSIUM 5.3 mmol/L (3.5-5.1)
[2023-07-16 17:09] LABS: HEMATOCRIT 25 % (39-51); HEMOGLOBIN 8.5 g/dL (13.5-17.5); LYMPHOCYTES # (AUTO) 1.5 K/uL (0.8-4.8); LYMPHOCYTES % (AUTO) 7.8 % (20.0-44.0); MEAN CORPUSCULAR HEMOGLOBIN 29 PG (26.0-33.0); MEAN CORPUSCULAR HGB CONC 34 g/dl (31.0-36.0); MEAN CORPUSCULAR VOLUME 87 fL (80-96); MONOCYTES # (AUTO) 1.1 K/uL (0.1-1.30); MONOCYTES % (AUTO) 6.1 % (2.0-12.0); NEUTROPHILS # (AUTO) 16.3 K/uL (1.8-8.9); NEUTROPHILS % (AUTO) 86.1 % (43.0-81.0); PLATELET COUNT (AUTO) 252 K/uL (150-450); RED BLOOD CELL COUNT(AUTO) 2.88 MIL/uL (4.5-6.0); RED CELL DISTRIBUTION WIDTH 16.9 % (11.5-15.0)
[2023-07-16 17:25] LABS: INR 1.55 (0.91-1.10); PARTIAL THROMBOPLASTIN TIME 37.3 SEC (24.3-34.3)
[2023-07-16 18:19] LABS: CALCIUM, SERUM 9.4 mg/dL (8.5-10.1); CREATININE 4.1 mg/dL (0.6-1.3); POTASSIUM 5.2 mmol/L (3.5-5.1)
[2023-07-16] MEDS ORDERED: PHYTONADIONE INJ 10 MG/1 ML AMPUL IV SCH (19:30)
[2023-07-16] MEDS: PANTOPRAZOLE 40 MG VIAL IV SCH (20:34)
[2023-07-16] MEDS ORDERED: PHYTONADIONE INJ 10 MG/1 ML AMPUL ONE (21:58)
[2023-07-16] MEDS: PHYTONADIONE INJ 10 MG in IV D5W 50 ML IV ONE (22:05)
[2023-07-17] VITALS (8 sets, daily range): BP systolic 0–151; BP diastolic 0–100; TEMP 98–99.3; O2SAT 95–98
[2023-07-17] MEDS ORDERED: FUROSEMIDE 40 MG/4 ML VIAL ONE (06:54)
[2023-07-17 07:25] LABS: BASOPHILS % (AUTO) 0.1 % (0.0-2.0); LYMPHOCYTES # (AUTO) 1.6 K/uL (0.8-4.8); LYMPHOCYTES % (AUTO) 7.3 % (20.0-44.0); MEAN CORPUSCULAR HEMOGLOBIN 29 PG (26.0-33.0); MEAN CORPUSCULAR HGB CONC 32 g/dl (31.0-36.0); MEAN CORPUSCULAR VOLUME 91 fL (80-96); MONOCYTES # (AUTO) 1.5 K/uL (0.1-1.30); NEUTROPHILS # (AUTO) 18.2 K/uL (1.8-8.9); NEUTROPHILS % (AUTO) 85.6 % (43.0-81.0); PLATELET COUNT (AUTO) 216 K/uL (150-450); RED BLOOD CELL COUNT(AUTO) 2.09 MIL/uL (4.5-6.0); WHITE BLOOD COUNT (AUTO) 21.3 K/uL (4.3-11.0)
[2023-07-17] MEDS ORDERED: FUROSEMIDE 40 MG/4 ML VIAL IV ONE ×2 (07:30→09:00)
[2023-07-17 07:58] LABS: HEMATOCRIT 19 % (39-51)
[2023-07-17 08:12] LABS: ALBUMIN 3.4 g/dL (3.4-5.0); BILIRUBIN,TOTAL 2.2 mg/dL (0.2-1.0); CALCIUM, SERUM 8.8 mg/dL (8.5-10.1); CREATININE 5.8 mg/dL (0.6-1.3); MAGNESIUM 2.5 mg/dL (1.8-2.4); TOTAL PROTEIN, SERUM 6.7 g/dL (6.4-8.2)
[2023-07-17 08:20] LABS: ANISOCYTOSIS 1+; LYMPHOCYTES % (MANUAL) 4 % (16-48); MONOCYTES % (MANUAL) 5 % (0-11.0); NEUTROPHILS % (MANUAL) 91 (42-76); PLATELET ESTIMATE ADEQUATE
[2023-07-17] MEDS ORDERED: EPINEPHRINE (1:10,000) SYRINGE 1 MG/10 ML DISP.SYRIN IVP ONE (08:31)
[2023-07-17 09:14] LABS: PHOSPHORUS 9.7 mg/dL (2.5-4.9)
[2023-07-17] MEDS: Sodium Bicarbonate 100 MEQ in IV D5 / 0.2% NACL 1,000 ML IV SCH (09:16)
[2023-07-17] MEDS: NOREPINEPHRINE 32 MG in IV NS 0.9% 218 ML IV PRN (09:21)
[2023-07-17] MEDS ORDERED: NOREPINEPHRINE 8 MG in IV D5W 242 ML IV PRN (09:30)
[2023-07-17] MEDS ORDERED: SODIUM BICARBONATE SYR 50 MEQ/50 ML DISP.SYRIN IV ONE (09:32)
[2023-07-17 10:01] LABS: CALCIUM, SERUM 8.6 mg/dL (8.5-10.1); CREATININE 5.9 mg/dL (0.6-1.3)
[2023-07-17] MEDS: EPINEPHRINE (1:1000) 10 MG in IV NS 0.9% 240 ML IV PRN (10:16)
[2023-07-17] MEDS: SODIUM BICARBONATE SYR 50 MEQ/50 ML DISP.SYRIN IV ONE (10:45)
[2023-07-17] MEDS: DEXTROSE 50%-WATER 50 ML DISP.SYRIN IVP ONE (10:46)
[2023-07-17] MEDS: CALCIUM CHLORIDE 1,000 MG/10 ML DISP.SYRIN IV ONE (10:46)
[2023-07-17] MEDS: INSULIN REGULAR, HUMAN 100 UNIT/ML 3 ML VIAL IV ONE (10:48)
[2023-07-17] MEDS ORDERED: PHENYLEPHRINE 100 MG in IV NS 0.9% 240 ML IV PRN (12:00)
[2023-07-17] MEDS ORDERED: ALBUMIN 5% 12.5 GM/250 ML BOTTLE IV ONE (12:00)
[2023-07-17 12:16] LABS: HEMOGLOBIN 4.6 g/dL (13.5-17.5)
[2023-07-17 15:46] LABS: ABG BASE EXCESS -13.6 mmol/L; ABG OXYGEN SATURATION 93.5 % (92.0-98.5); ABG PCO2 21.3 mmHg (35.0-45.0); ABG PH 7.327 (7.350-7.450); ABG PO2 82.9 mmHg (75.0-100.0); ABG TOTAL HEMOGLOBIN 7.6 G/dL (13.5-18.0); AaDO2 91.6 mmHg; COHb 0.2 % (0.5-1.5); MetHb 0.4 % (0.0-1.5); O2Hb 92.9 % (94.0-97.0); SITE, ABG Right Radial
[2023-07-17] MEDS ORDERED: CALCIUM CHLORIDE 1,000 MG/10 ML DISP.SYRIN IV ONE (16:47)
[2023-07-18 08:06] LABS: PTH, INTACT 539 pg/mL (15-65)
[2023-07-18 11:07] LABS: *SPE A/G RATIO 1.1 (0.7-1.7); *SPE ALBUMIN 3.3 g/dL (2.9-4.4); *SPE ALPHA-1-GLOBULIN 0.4 g/dL (0.0-0.4); *SPE ALPHA-2-GLOBULIN 0.7 g/dL (0.4-1.0); *SPE BETA GLOBULIN 0.9 g/dL (0.7-1.3); *SPE M-SPIKE Not Observed g/dL (Not Observed); *SPE PROTEIN TOTAL 6.3 g/dL (6.0-8.5); *SPEGAMMA GLOBULIN 1.1 g/dL (0.4-1.8)
== END 2023-07-17 16:48 | DRG 194 ==
LOC: ER 17:23 → TELE 20:54 → ICU 07-17 08:39
PROVIDERS: ADMIT Nurse Practitioner Acute Care; ATTEND Nurse Practitioner Acute Care
PROC: 5A1935Z Respiratory Ventilation, Less than 24 Consecutive Hours (ICD-10-PCS; principal; 2023-07-17)
PROC: 5A12012 Performance of Cardiac Output, Single, Manual (ICD-10-PCS; 2023-07-17)
PROC: 5A12012 Performance of Cardiac Output, Single, Manual (ICD-10-PCS; 2023-07-17)
PROC: 0BH18EZ Insertion of Endotracheal Airway into Trachea, Via Natural or Artificial Opening Endoscopic (ICD-10-PCS; 2023-07-17)
PROC: 02HV33Z Insertion of Infusion Device into Superior Vena Cava, Percutaneous Approach (ICD-10-PCS; 2023-07-17)
PROC: B548ZZA Ultrasonography of Superior Vena Cava, Guidance (ICD-10-PCS; 2023-07-17)
PROC: 5A2204Z Restoration of Cardiac Rhythm, Single (ICD-10-PCS; 2023-07-17)
DX: I11.0 Hypertensive heart disease with heart failure (principal); J96.01 Acute respiratory failure with hypoxia; N17.0 Acute kidney failure with tubular necrosis; R57.8 Other shock; E87.1 Hypo-osmolality and hyponatremia; D64.9 Anemia, unspecified; E11.9 Type 2 diabetes mellitus without complications; I21.A1 Myocardial infarction type 2; I27.20 Pulmonary hypertension, unspecified; S30.0XXA Contusion of lower back and pelvis, initial encounter; I50.23 Acute on chronic systolic (congestive) heart failure; X58.XXXA Exposure to other specified factors, initial encounter; F20.9 Schizophrenia, unspecified; J44.1 Chronic obstructive pulmonary disease with (acute) exacerbation; I42.9 Cardiomyopathy, unspecified; E87.5 Hyperkalemia; I25.10 Atherosclerotic heart disease of native coronary artery without angina pectoris; K74.60 Unspecified cirrhosis of liver; N13.1 Hydronephrosis with ureteral stricture, not elsewhere classified; E66.9 Obesity, unspecified; E78.5 Hyperlipidemia, unspecified; G47.33 Obstructive sleep apnea (adult) (pediatric); Z59.01 Sheltered homelessness; Z79.4 Long term (current) use of insulin; Z86.73 Personal history of transient ischemic attack (TIA), and cerebral infarction without residual deficits; Z91.199 Patient's noncompliance with other medical treatment and regimen due to unspecified reason; Z79.82 Long term (current) use of aspirin; F17.210 Nicotine dependence, cigarettes, uncomplicated; F10.10 Alcohol abuse, uncomplicated; Z71.6 Tobacco abuse counseling; Z68.33 Body mass index [BMI] 33.0-33.9, adult; Y93.9 Activity, unspecified; Y92.89 Other specified places as the place of occurrence of the external cause; N40.1 Benign prostatic hyperplasia with lower urinary tract symptoms; R33.8 Other retention of urine; E87.4 Mixed disorder of acid-base balance; M89.8X9 Other specified disorders of bone, unspecified site; N17.9 Acute kidney failure, unspecified; F99 Mental disorder, not otherwise specified
CPT/HCPCS: 36415; 36569; 36600; 71045-TC; 76770-TC; 80048-TC; 80053-TC; 80061-TC; 80076-TC; 81001; 82550-TC; 82553; 82962-TC; 83735-TC; 83880; 83970; 84100-TC; 84155; 84165; 84439-TC; 84443-TC; 84484-TC; 85025-TC; 85027-TC; 85610-TC; 85730-TC; 86850-TC; 92950-TC; 93307-TC; 93970-TC; 94002-TC; 94799-TC; A4216; A4223; C9113; G0378; J0171; J1650; J1815; J1940; J2270; J2543; J2930; J3430; J3490; J7050; J7060; P9047